=== PATIENT | male | born 1955 | race Caucasian/White ===

== ENCOUNTER 2019-12-26 21:47 | Emergency (ER) | payer SELFPAY ==
[2019-12-26 21:57] VITALS: BP 135/87; PULSE 104; RESP 18; TEMP 36.1; O2SAT 96; BMI 76.2
--- NOTE | 2019-12-26 22:31 | ED.ALCOHOL ---
HPI - Alcohol General Chief Complaint: ETOH/Substance Use <Fito Cotton NP - Last Filed: 12/27/19 01:38> Stated Complaint: ETOH <Fito Cotton NP - Last Filed: 12/27/19 01:38> Time Seen by Provider: 12/26/19 22:31 <Fito Cotton NP - Last Filed: 12/27/19 01:38> Source: EMS <Fito Cotton NP - Last Filed: 12/27/19 01:38> Mode of arrival: EMS <Fito Cotton NP - Last Filed: 12/27/19 01:38> Limitations: no limitations <Fito Cotton NP - Last Filed: 12/27/19 01:38> History of Present Illness HPI narrative: ETOH - states he was drinking etoh And unsure why his brother called ambulance. He has no complaints. He admits to drinking alcohol today and states he does still occasionally. Denies any injury or fall. <Fito Cotton NP - Last Filed: 12/27/19 01:38> MD complaint: alcohol intoxication <Fito Cotton NP - Last Filed: 12/27/19 01:38> Chronic alcohol use: Yes <Fito Cotton NP - Last Filed: 12/27/19 01:38> Previous visits for alcohol intoxication: Yes <Fito Cotton NP - Last Filed: 12/27/19 01:38> Recent trauma: No <Fito Cotton NP - Last Filed: 12/27/19 01:38> Associated symptoms: denies other symptoms <Fito Cotton NP - Last Filed: 12/27/19 01:38> Treatments prior to arrival: none <Fito Cotton NP - Last Filed: 12/27/19 01:38> Review of Systems Review of Systems: Constitutional: No Weight loss, No Fever, No Chills, No Night Sweats, No Fatigue, No Malaise ENT/Mouth: No Hearing loss, No Ear Pain, No Nasal Congestion, No Sinus Pain, No Hoarseness, No sore throat, No Rhinorrhea, No Swallowing Difficulty Eyes: No Eye Pain, No Swelling, No Redness, No Foreign Body, No Discharge, No Vision Changes Cardiovascular: No Chest Pain, No SOB, No Dyspnea on Exertion, No Orthopnea, No Edema, No Palpitations Respiratory: No Cough, No Sputum, No Wheezing, No Smoke Exposure, No Dyspnea Gastrointestinal: No Nausea, No Vomiting, No Diarrhea, No Constipation, No abdominal Pain, No Hematochezia, No Melena Genitourinary: no irregular bleeding, No Dysuria, No Urinary Frequency, No Hematuria, No Urinary Incontinence, No Urgency, No Flank Pain, No Urinary Flow Changes, No Hesitancy Musculoskeletal: No joint pain, No Myalgias, No Joint Swelling Skin: No Skin Lesions, No rash Neuro: No Weakness, No Numbness, No Paresthesias, No Loss of Consciousness, No Dizziness, No Headache Psych: No Anxiety/Panic, No Depression, No SI/HI/AH/VH, No Social Issues Heme/Lymph: No Bruising, No Bleeding,No Lymphadenopathy Endocrine: No Polyuria, No Polydipsia, No Temperature Intolerance <Fito Cotton NP - Last Filed: 12/27/19 01:38> Yes all other systems are reviewed and are negative <Fito Cotton NP - Last Filed: 12/27/19 01:38> [facility] Past Medical History Attestation statement: The following information was validated with the patient. <Fito Cotton NP - Last Filed: 12/27/19 01:38> Source: unable to obtain <Fito Cotton NP - Last Filed: 12/27/19 01:38> Medical History: Medical History ETOH abuse <Fito Cotton NP - Last Filed: 12/27/19 01:38> Social History Social History: Social History Alcohol intake: current Use of substances other than those prescribed or required for medical reasons: No Advance Directives: No Advance Directives Information Provided: Yes <Fito Cotton NP - Last Filed: 12/27/19 01:38> Physical Exam Vital Signs: Vital Signs: Vital Signs Temp Pulse Resp BP Pulse Ox 12/26/19 23:49 97.7 F 108 H 17 158/74 H 99 12/26/19 21:57 97.0 F 104 H 18 135/87 96 Body Mass Index 76.2 Reviewed <Fito Cotton NP - Last Filed: 12/27/19 01:38> Vital Signs: Vital Signs Temp Pulse Resp BP Pulse Ox 12/26/19 23:49 97.7 F 108 H 17 158/74 H 99 12/26/19 21:57 97.0 F 104 H 18 135/87 96 Body Mass Index 76.2 <Erica Rutledge MD - Last Filed: 12/27/19 02:15> Const: Other: slight odor of etoh <[facility] PAIGE Cotton - Last Filed: 12/27/19 01:38> General: cooperative and healthy appearing; No acute distress or intoxicated appearing <[facility] PAIGE Cotton - Last Filed: 12/27/19 01:38> Nutritional Appearance: average body habitus <[facility] PAIGE Cotton - Last Filed: 12/27/19 01:38> Orientation/consciousness: patient oriented x3 <[facility] PAIGE Cotton - Last Filed: 12/27/19 01:38> HENMT: Head: Yes normal to inspection <[facility] PAIGE Cotton - Last Filed: 12/27/19 01:38> Ears: hearing grossly normal bilaterally <[facility] PAIGE Cotton - Last Filed: 12/27/19 01:38> Eyes: General: appearance normal, both eyes and all related structures <[facility] PAIGE Cotton - Last Filed: 12/27/19 01:38> Visual Macdonald: normal visual macdonald by confrontation <[facility] PAIGE Cotton - Last Filed: 12/27/19 01:38> Neck: Neck: Yes normal visual inspection and No tender <[facility] PAIGE Cotton - Last Filed: 12/27/19 01:38> Thyroid: Thyroid normal <[facility] PAIGE Cotton - Last Filed: 12/27/19 01:38> Chest: Chest palpation & inspection: normal inspection of the chest <[facility] PAIGE Cotton - Last Filed: 12/27/19 01:38> Resp: Effort & Inspection: normal respiratory effort <[facility] PAIGE Cotton - Last Filed: 12/27/19 01:38> Cardio: Jugular venous distension: no JVD <[facility] PAIGE Cotton - Last Filed: 12/27/19 01:38> GI: Inspection: Yes normal to inspection <[facility] PAIGE Cotton - Last Filed: 12/27/19 01:38> Percussion: Yes normal to percussion <[facility] PAIGE Cotton - Last Filed: 12/27/19:38> Auscultation: normal bowel sounds <Fito Cotton NP - Last Filed: 12/27/19 01:38> : General: Yes no CVA tenderness <Fito Cotton NP - Last Filed: 12/27/19:38> Back/Spine/Pelvis: Back: no CVA tenderness <Fito Cotton NP - Last Filed: 12/27/19:38> Skin: General skin exam: no rashes or lesions noted <Fito Cotton NP - Last Filed: 12/27/19:38> Neuro: General: patient oriented x3 <Fito Cotton NP - Last Filed: 12/27/19:38> Extrem: General: Yes normal to inspection <Fito Cotton NP - Last Filed: 12/27/19:38> Course Course Course Narrative: 0135 attempted to call his brother to give him a ride home brother did not answer her phone at this time will allow patient to rest in the ED and he will try calling his brother in the morning for a ride back home. Will continue to encourage him for detox services. Patient will be signed out pending discharge in a.m.. <Fito Cotton NP - Last Filed: 12/27/19 01:38> MDM - Alcohol MDM Narrative Medical decision making narrative: Has been calm cooperative. Admits to ETOH intake this evening without any acute complaint/injury/fall. Will offer detox services and re-evaluate. <Fito Cotton NP - Last Filed: 12/27/19 01:38> Differential Diagnosis Differential diagnosis: Likely alcohol dependence and alcohol intoxication; Unlikely alcohol withdrawal delirium, hypomagnesemia, alcohol ketoacidosis, alcohol withdrawal syndrome and alcohol withdrawal seizure <Fito Cotton NP - Last Filed: 12/27/19 01:38> Medical Records Attestation: I reviewed the patient's medical records. <Fito Cotton NP - Last Filed: 12/27/19 01:38> Lab Data Attestation: I reviewed the patient's lab results. <Fito Cotton NP - Last Filed: 12/27/19 01:38> Discharge Plan Discharge Clinical Impression: Alcoholic intoxication Qualifiers: Complication of substance-induced condition: uncomplicated Qualified Code(s): F10.920 - Alcohol use, unspecified with intoxication, uncomplicated <Fito Cotton NP - Last Filed: 12/27/19 01:38> Patient Disposition: Home, Self-Care <Fito Cotton NP - Last Filed: 12/27/19 01:38> Instructions: Abuse of Alcohol (ED), Alcohol Use Disorder (ED) <Fito Cotton NP - Last Filed: 12/27/19 01:38> Additional Instructions: Please stop drinking alcohol Please seek detox Return if any concerns or worsening symptoms otherwise follow up with detox Also follow up with primary care doctor Thank you <Fito Cotton NP - Last Filed: 12/27/19 01:38> Referrals: Physician,None [Primary Care Provider] - 2 days ( primary care doctor Detox center ) <Fito Cotton NP - Last Filed: 12/27/19 01:38>
[2019-12-26 23:49] VITALS: BP 158/74; PULSE 108; RESP 17; TEMP 36.5; O2SAT 99
--- NOTE | 2019-12-27 00:09 | PC.NURSE ---
PT IS SLEEPING AT THIS TIME.
[2019-12-27 04:42] VITALS: BP 130/84; PULSE 96; RESP 16; O2SAT 96
== END 2019-12-27 05:36 | disposition home or self-care (01) ==
PROVIDERS: Emergency Provider Student in an Organized Health Care Education/Training Program
DX: F10.120 Alcohol abuse with intoxication, uncomplicated (principal); Y90.9 Presence of alcohol in blood, level not specified; Z71.41 Alcohol abuse counseling and surveillance of alcoholic
CPT/HCPCS: 99284

== ENCOUNTER 2023-04-26 13:53 | Inpatient (IN) | payer MEDICARE, MEDICAID, SELFPAY ==
--- NOTE | ~2023-04-26 | CT_ITS ---
EXAMINATION: CT ABDOMEN AND PELVIS WITH CONTRAST CLINICAL INFORMATION: 67-year-old male with left lower quadrant pain and weight loss COMPARISON: None available. TECHNIQUE: Multidetector volumetric images were obtained from the superior aspect of the liver through the pubic symphysis following administration 85 mL of Omnipaque 350 intravenous contrast. Sagittal and coronal reformatted images were obtained on the technologist's workstation. Oral contrast: No This CT examination was performed using dose optimization techniques as appropriate, variously including the following: *Automated exposure control *Adjustment of mA and/or kV according to patient size (this includes techniques or standardized protocols for targeted exams where dose is matched to indication/reason for exam; i.e. extremities or head) *Use of iterative reconstruction technique DLP: 619 mGy-cm FINDINGS: LUNG BASES: The visualized lung bases are unremarkable. LIVER, GALLBLADDER, AND BILIARY TREE: The liver is normal in size, shape, and attenuation. No focal hepatic lesion or biliary ductal dilatation is present. The gallbladder is unremarkable with no evidence of radiopaque gallstones, gallbladder wall thickening, or obvious pericholecystic inflammatory changes. PANCREAS: Unremarkable. SPLEEN: Unremarkable. ADRENAL GLANDS: Unremarkable. KIDNEYS AND URETERS: Right kidney revealed small cortical cyst in interpolar region measures 0.7 cm. Left kidney demonstrate nonobstructing 0.2 cm stone in the upper pole and nonobstructing 0.2 cm calculi in the lower pole. There is no hydroureteronephrosis or masses. BLADDER: Unremarkable. GASTROINTESTINAL TRACT: There is circumferential thickening and dilatation of small bowel loops with a maximum dimension 3.9 cm findings suggestive for small bowel obstruction. There is normal transition is in the right lower quadrant. There is large amount of fecal debris seen through the colon appendix is not seen. Descending colon is unremarkable. There are changes of diverticulosis but no diverticulitis. Large lobe of the descending colon and sigmoid is in the left inguinal hernia and incompletely included. There are bilateral inguinal hernias with loops of bowel herniated in the hernias with small bowel loops seen through the right inguinal hernia with possible incarceration and colonic loops seen through the large left inguinal hernia. LYMPH NODES: Normal. VASCULAR: Abdominal aorta is tortuous but not dilated. PELVIC VISCERA: Unremarkable. OSSEOUS STRUCTURES: There are multilevel degenerative changes in lumbar spine levoscoliosis. CT/CT abdomen pelvis w IV con IMPRESSION: 1. Small bowel obstruction secondary to incarceration of small bowel loop in the right inguinal hernia. 2. Large left inguinal hernia containing descending colon and sigmoid colon, without incarceration. 3. Diverticulosis without diverticulitis. 4. Left nephrolithiasis without hydronephrosis. Fleischner guidelines were followed. This critical result was discussed with Dr Day at 7:00 PM on 04/26/2023 and it was ascertained that the content and urgency of the report was understood at the time of direct communication.
[2023-04-26 14:27] VITALS: BP 108/70; BP 118/80; PULSE 84; PULSE 93; RESP 18; TEMP 36.4; O2SAT 98; O2SAT 99; BMI 26.8
--- NOTE | 2023-04-26 15:17 | ED.ABDPAIN ---
HPI - Abdominal Pain General Chief Complaint: Abdominal Pain Stated Complaint: LLQ PAIN PER EMS Time Seen by Provider: 04/26/23 14:46 Source: patient and old records reviewed Mode of arrival: EMS Limitations: no limitations History of Present Illness HPI narrative: 67 yo male with no sig PMH denies surgery or prior colonoscopy reports change in stools more soft and increasing LLQ pain with unknown amount of weight loss for 1 year. no blood in stools. Has not seen a doctor. Has tried OTC laxatives without relief. MD elicited complaint: abdominal pain Onset (ago): year(s) (1) Pain Consistency: intermittent Location: LLQ Severity: moderate Quality: aching Radiation: none Migration to: no migration Exacerbating factors: nothing and bowel movement Relieving factors: nothing Associated symptoms: other (change in stools weight loss) Related Data Allergies Allergy/AdvReac Type Severity Reaction Status Date / Time No Known Allergies Allergy Verified 04/26/23 14:26 Review of Systems Review of Systems Constitutional : pos Weight loss, No Fever, No Chills ENT/Mouth : No sore throat, No Rhinorrhea Eyes: No Swelling, No Redness Cardiovascular : No Chest Pain, No SOB, NoEdema Respiratory : No Cough, No Sputum, No Wheezing Gastrointestinal : no Nausea, no Vomiting, no Diarrhea, positive abdominal Pain, No Hematochezia, No Melena Genitourinary : No Dysuria, No Urinary Frequency, No Hematuria, No Urgency Musculoskeletal : No joint pain, No Myalgias, No Joint Swelling Skin : No Skin Lesions, No rash Neuro : No Weakness, No Numbness, No Dizziness, No Headache Psych : No Anxiety/Panic, No Depression All other systems reviewed and are negative. [facility] Past Medical History Attestation statement: The following information was validated with the patient. Source: old records reviewed Medical History ETOH abuse Social History Social History Unable to assess alcohol history related to: Unable to respond Alcohol intake: current Smoked in Last 30 Days: No Use of substances other than those prescribed or required for medical reasons: No Advance Directives: No Advance Directives Information Provided: Yes Physical Exam ED Vital Signs: Vital Signs - 24 hr 04/26/23 14:27 Temperature 97.6 F Pulse Rate 84 Respiratory Rate 18 Blood Pressure 108/70 Pulse Oximetry 99 Oxygen Delivery Method Room Air BMI result Body Mass Index 26.8 Appearance: Alert. Oriented X3. No acute distress. Eyes: Pupils equal, round and reactive to light. ENT: Pharynx normal. Neck: Normal inspection. Neck supple. CVS: Normal heart rate and rhythm. Pulses normal. Respiratory: No respiratory distress. Breath sounds normal. Abdomen: Soft and moderate LLQ pain no rebound Skin: Skin warm and dry. Normal skin color. Normal skin turgor. Extremities: No lower extremity edema. No calf ttp Neuro: Oriented X 3. No motor deficit. No sensory deficit. Course Course Course Narrative: signed out Dr. Day pending CT scans Medical Decision Making Medical Decision Making [facility] Narrative: 67 yo male no sig PMH no prior colonoscopy here with c/o LLQ pain and change in stools with weight loss but unknown amount for 1 year. He has not seen a doctor for this. At this time given the history will obtain labs, UA, and CT scan for mass. Differential Diagnosis Differential Diagnoses: The differential diagnosis associated with the presentation includes diverticulitis, constipation, hernia, mass Admission/Observation Consideration of admission/observation: Escalation of care including admission/observation considered Lab Data [facility] Lab Attestation statement: I reviewed the patient's lab results. 04/26/23 15:17 04/26/23 15:17 Labs: Lab Results 04/26/23 Range/Units 15:17 WBC 7.8 (4.8-10.8) X10*3/uL RBC 4.14 L (4.60-5.80) X10*6/uL Hgb 12.2 L (14.0-18.0) g/dl Hct 35.5 L (42.0-52.0) % MCV 85.7 (80.0-98.0) fL MCH 29.5 (27.0-33.0) pg MCHC 34.4 (31.0-36.0) g/dl RDW 12.9 (11.0-16.0) % Plt Count 221 (160-400) X10*3/uL MPV 8.6 L (9.4-12.4) fL Immature Gran % (Auto) 0.4 (0.0-0.4) % Neut % (Auto) 72.8 (45-73) % Lymph % (Auto) 12.3 L (20-40) % [place] % (Auto) 11.2 H (2-11) % Eos % (Auto) 2.3 (0-4) % Baso % (Auto) 1.0 (0-2) % Lymph # (Auto) 1.0 L (1.2-4.9) X10*3/uL [place] # (Auto) 0.9 (0.1-1.2) X10*3/uL Eos # (Auto) 0.2 (0.0-0.4) X10*3/uL Baso # (Auto) 0.1 (0.0-0.2) X10*3/uL Abs Immat Gran (auto) 0.03 (0.00-0.03) X10*3/uL Absolute Neuts (auto) 5.7 (2.0-8.3) x10*3/uL Absolute Nucleated RBC 0.000 (0.0-0.012) X10*3/uL Nucleated RBC % (auto) 0.0 (0.0-0.2) /100WBC Sodium 133 L (135-145) mmol/L Potassium 4.3 (3.3-5.1) mmol/L Chloride 101 (96-108) mmol/L Carbon Dioxide 26 (22-29) mmol/L Anion Gap 10 L (12-20) BUN 14 (9-16) mg/dL Creatinine 0.85 (0.5-1.4) mg/dL Estim Creat Clear Calc 91.2 Estimated GFR > 60 Random Glucose 113 (60-115) mg/dL Calcium 9.1 (8.4-10.2) mg/dL Magnesium 2.2 (1.6-2.6) mg/dL Total Bilirubin 1.3 H (0.0-1.0) mg/dL Direct Bilirubin 0.5 (0.0-0.5) mg/dL AST 12 (5-37) U/L ALT 6 (0-40) U/L Alkaline Phosphatase 61 (39-117) U/L Total Protein 6.0 L (6.5-8.0) g/dL Albumin 3.6 (3.5-5.0) g/dL Lipase 37 (8-78) U/L Independent Historian Clinical information obtained from an independent historian. History obtained from or confirmed by: EMS External Record Review External record reviewed: Outpatient record Discharge Plan Discharge Clinical Impression: Abdominal pain Qualifiers: Abdominal location: left lower quadrant Qualified Code(s): R10.32 - Left lower quadrant pain Patient Disposition: Still a Patient
[2023-04-26 15:21] LABS: MANUAL DIFF FLAG NO
[2023-04-26 15:24] LABS: Basophils Absolute Auto 0.1 X10*3/uL (0.0-0.2); Eosinophils Absolute Auto 0.2 X10*3/uL (0.0-0.4); Eosinophils Percent Auto 2.3 % (0-4); Hematocrit 35.5 % (42.0-52.0); Hemoglobin 12.2 g/dl (14.0-18.0); Imm Gran Abs Auto 0.03 X10*3/uL (0.00-0.03); Imm Gran Pct Auto 0.4 % (0.0-0.4); Lymphocytes Percent Auto 12.3 % (20-40); Mean Corpuscular HGB Conc 34.4 g/dl (31.0-36.0); Mean Corpuscular Hemoglobin 29.5 pg (27.0-33.0); Mean Corpuscular Volume 85.7 fL (80.0-98.0); Mean Platelet Volume 8.6 fL (9.4-12.4); Monocytes Absolute Auto 0.9 X10*3/uL (0.1-1.2); Monocytes Percent Auto 11.2 % (2-11); Neutrophils Absolute Auto 5.7 x10*3/uL (2.0-8.3); Neutrophils Percent Auto 72.8 % (45-73); Platelet Count 221 X10*3/uL (160-400); Red Blood Count 4.14 X10*6/uL (4.60-5.80); Red Cell Distribution Width 12.9 % (11.0-16.0); White Blood Count 7.8 X10*3/uL (4.8-10.8)
[2023-04-26 15:38] LABS: Alanine Aminotransferase 6 U/L (0-40); Albumin Level 3.6 g/dL (3.5-5.0); Alkaline Phosphatase 61 U/L (39-117); Anion Gap 10 (12-20); Aspartate Amino Transferase 12 U/L (5-37); Bilirubin Direct 0.5 mg/dL (0.0-0.5); Bilirubin Total 1.3 mg/dL (0.0-1.0); Blood Urea Nitrogen 14 mg/dL (9-16); Calcium 9.1 mg/dL (8.4-10.2); Carbon Dioxide 26 mmol/L (22-29); Chloride 101 mmol/L (96-108); Creatinine Clr Calc Pharmacy 91.2; Estimated Glomerular Filt Rate > 60; Glucose Random 113 mg/dL (60-115); Lipase 37 U/L (8-78); Magnesium 2.2 mg/dL (1.6-2.6); Potassium 4.3 mmol/L (3.3-5.1); Sodium 133 mmol/L (135-145)
[2023-04-26 16:00] VITALS: BP 135/73; PULSE 70; RESP 13; TEMP 37.2; O2SAT 100
[2023-04-26] MEDS: iohexoL 350 MG/ML 100 ML INFUS..BTL 85 ML IV (16:23)
--- NOTE | 2023-04-26 16:48 | PC.NURSE ---
patient a&ox3, vss, labs drawn, pt had ct scan performed, pt currently awaiting results and watching tv. per pt lbm today, call pratt within reach, will continue to monitor
[2023-04-26 18:00] VITALS: BP 116/79; PULSE 63; RESP 14; TEMP 37.2; O2SAT 100
[2023-04-26 20:00] VITALS: BP 131/80; PULSE 63; RESP 20; TEMP 36.9; O2SAT 100
--- NOTE | 2023-04-26 20:07 | P.HPHOSP_ITS ---
History of Present Illness Date of Service: 04/26/23 Chief Complaint: Abdominal pain This is a 67-year-old male with pertinent history of dementia, unspecified who presents to the emergency department for evaluation of abdominal discomfort. Patient states he has had right and left-sided abdominal discomfort, intermittent that has been ongoing for a year. It has been progressive over the last few weeks. Patient is not the best historian and states his last bowel movement was on the day of presentation. He denies nausea or vomiting. He denies similar complaints in the past. States he never had a colonoscopy in the past or any other surgery. Patient takes Metamucil for his abdominal discomfort but no relief. Denies fever, chills, chest discomfort, palpitations, shortness of breath, changes in urinary habits. Patient states his last alcoholic drink was around [place] In the emergency department, imaging with small-bowel obstruction secondary to incarceration of small bowel loop in the right inguinal hernia. Also noted large left inguinal hernia without incarceration. General surgery was consulted who requested admission with hospital medicine team. Review of Systems 2 Constitutional: Constitutional: Reports no additional constitutional complaints Cardiovascular: Cardiovascular: Reports no additional cardiovascular complaints Respiratory: Respiratory: Reports no additional respiratory complaints Gastrointestinal: Gastrointestinal: Reports abdominal pain Genitourinary: Genitourinary: Reports no additional male genitourinary complaints Neurologic: Reports system reviewed and no additional complaints, except as documented [facility] Medical History Dementia ETOH abuse Pertinent family history: No family history of early CAD Social History Unable to assess alcohol history related to: Unable to respond Alcohol intake: current Smoked in Last 30 Days: No Use of substances other than those prescribed or required for medical reasons: No Advance Directives: No Advance Directives Information Provided: Yes Meds Allergies Allergy/AdvReac Type Severity Reaction Status Date / Time No Known Allergies Allergy Verified 04/26/23 14:26 Home Medications Medication Instructions Recorded Confirmed Last Taken Type cholecalciferol (vitamin D3) 25 25 mcg PO DAILY 04/26/23 04/26/23 Unknown History mcg (1,000 unit) tablet donepezil 10 mg tablet 10 mg PO DAILY 04/26/23 04/26/23 Unknown History Physical Exam 2 Vital Signs and Narrative: Vital Signs: Last Vital Signs Temp 98.4 F 04/26/23 20:00 Pulse 63 04/26/23 20:00 Resp 20 04/26/23 20:00 BP 131/80 04/26/23 20:00 Pulse Ox 100 04/26/23 20:00 O2 Del Method Room Air 04/26/23 20:00 BMI result Body Mass Index 26.8 Middle-aged male lying in bed in no distress Neck supple, no JVD Regular rate and rhythm, S1-S2 heard Regular breath sounds bilaterally, no wheezing or crackles appreciated Abdomen soft with right and left lower quadrant tenderness, no guarding, no rigidity, no rebound tenderness Patient is awake, alert and oriented to self, place, time and person ; no focal motor deficit Psych: Normal mood No pedal edema Results Labs 04/26/23 15:17 04/26/23 15:17 Labs: Laboratory Results - last 24 hr 04/26/23 15:17 MCV 85.7 MCH 29.5 MCHC 34.4 RDW 12.9 Plt Count 221 MPV 8.6 L Immature Gran % (Auto) 0.4 Neut % (Auto) 72.8 Lymph % (Auto) 12.3 L [place] % (Auto) 11.2 H Eos % (Auto) 2.3 Baso % (Auto) 1.0 Lymph # (Auto) 1.0 L [place] # (Auto) 0.9 Eos # (Auto) 0.2 Baso # (Auto) 0.1 Abs Immat Gran (auto) 0.03 Absolute Neuts (auto) 5.7 Absolute Nucleated RBC 0.000 Nucleated RBC % (auto) 0.0 Anion Gap 10 L Estim Creat Clear Calc 91.2 Estimated GFR > 60 Random Glucose 113 Calcium 9.1 Magnesium 2.2 Total Bilirubin 1.3 H Direct Bilirubin 0.5 AST 12 ALT 6 Alkaline Phosphatase 61 Total Protein 6.0 L Albumin 3.6 Lipase 37 Imaging Radiologist's Impressions: Impressions Abdomen/Pelvis CT 04/26/23 16:22 IMPRESSION: 1. Small bowel obstruction secondary to incarceration of small bowel loop in the right inguinal hernia. 2. Large left inguinal hernia containing descending colon and sigmoid colon, without incarceration. 3. Diverticulosis without diverticulitis. 4. Left nephrolithiasis without hydronephrosis. Fleischner guidelines were followed. This critical result was discussed with Dr Day at 7:00 PM on 04/26/2023 and it was ascertained that the content and urgency of the report was understood at the time of direct communication. Assessment and Plan (1) Small bowel obstruction: Status: Acute Plan This is a 67-year-old male with pertinent history of dementia, unspecified who presents to the emergency department for evaluation of abdominal discomfort. #. Small-bowel obstruction secondary to incarceration of small bowel loop: Will admit patient and keep him NPO. General surgery was consulted from the ER, appreciate assistance. Resuscitating with IV crystalloids. Symptomatic management with antiemetics and analgesia #. Dementia, unspecified: On donepezil. Maintain sleep-wake cycle #. Alcohol use disorder: Monitor CIWA. Initiated thiamine DVT prophylaxis: SCDs Full code Admit as inpatient and will require two night minimum hospital stay for treatment of small-bowel obstruction (as above), which is not possible in a lesser acute setting. Specialist consult pending Quality Stroke Does the patient have a stroke diagnosis?: No VTE Prior VTE?: No VTE Risk Level:: Medical - moderate - high VTE Device Contraindication: N/A - Device Ordered VTE Drug Contraindication: Treatment Not Indicated
--- NOTE | 2023-04-26 20:31 | PHA.MEDREC ---
Pharmacy Consult ? Medication Reconciliation Pharmacy has completed the medication reconciliation. Confirmed medication with claim history. Patient unreliable, is unsure of what he is taking at home. Provider wanted Donepazil on list (has been filled consistently for months)
[2023-04-26] MEDS: Lactated Ringers 1,000 ML 999 ML IV (20:47)
[2023-04-26] MEDS: Thiamine HCL 100 MG in 0.9 % Sodium Chloride 100 ML 202 MG IV (20:55)
[2023-04-27 02:29] LABS: Appearance Urine Clear; Color Urine Yellow; Glucose Urine UA Negative (Negative); Leukocyte Esterase Urine Negative (Negative); Nitrite Urine Negative (Negative); PH 7.5 (5.0-9.0); Specific Gravity - Urine <= 1.005 (1.005-1.025); Urine Blood Negative (Negative); Urine Ketones Negative (Negative); Urine Protein Negative (Neg-Trace)
[2023-04-27 05:04] LABS: Basophils Absolute Auto 0.1 X10*3/uL (0.0-0.2); Basophils Percent Auto 1.6 % (0-2); Eosinophils Absolute Auto 0.4 X10*3/uL (0.0-0.4); Eosinophils Percent Auto 7.2 % (0-4); Hematocrit 35.8 % (42.0-52.0); Imm Gran Abs Auto 0.03 X10*3/uL (0.00-0.03); Imm Gran Pct Auto 0.5 % (0.0-0.4); Lymphocytes Absolute Auto 1.2 X10*3/uL (1.2-4.9); Lymphocytes Percent Auto 21.7 % (20-40); MANUAL DIFF FLAG NO; Mean Corpuscular HGB Conc 33.5 g/dl (31.0-36.0); Mean Corpuscular Hemoglobin 29.3 pg (27.0-33.0); Mean Corpuscular Volume 87.3 fL (80.0-98.0); Mean Platelet Volume 8.5 fL (9.4-12.4); Monocytes Absolute Auto 0.7 X10*3/uL (0.1-1.2); Monocytes Percent Auto 12.8 % (2-11); Neutrophils Absolute Auto 3.1 x10*3/uL (2.0-8.3); Neutrophils Percent Auto 56.2 % (45-73); Platelet Count 196 X10*3/uL (160-400); Red Cell Distribution Width 12.7 % (11.0-16.0); White Blood Count 5.5 X10*3/uL (4.8-10.8)
[2023-04-27 05:17] LABS: Anion Gap 8 (12-20); Blood Urea Nitrogen 11 mg/dL (9-16); Calcium 8.6 mg/dL (8.4-10.2); Carbon Dioxide 26 mmol/L (22-29); Chloride 107 mmol/L (96-108); Creatinine Clr Calc Pharmacy 109.2; Estimated Glomerular Filt Rate > 60; Glucose Random 87 mg/dL (60-115); Potassium 3.8 mmol/L (3.3-5.1); Sodium 137 mmol/L (135-145)
--- NOTE | 2023-04-27 06:38 | P.CONGS_ITS ---
History of Present Illness Consult details Consult date: 04/27/23 Narrative: Patient presents here from his [facility] with complaints of constipation. Workup demonstrated findings of bilateral inguinal hernias although the patient had no complaints of inguinal pain or abdominal distention. On evaluation this morning, patient has no abdominal pain. He is passing flatus. Chart was reviewed and patient evaluated ; history of dementia. [facility] Past Medical History Medical History Dementia ETOH abuse Social History Social History Unable to assess alcohol history related to: Unable to respond Alcohol intake: current Patient Tobacco Use Status: Never used Tobacco Smoked in Last 30 Days: No Use of substances other than those prescribed or required for medical reasons: No Advance Directives: No Advance Directives Information Provided: Yes Meds Allergies Allergy/AdvReac Type Severity Reaction Status Date / Time No Known Allergies Allergy Verified 04/26/23 14:26 Active Medications: Current Medications Acetaminophen (Acetaminophen 325 Mg Tablet) 650 mg PO Q6H PRN PRN Reason: Pain, Mild (Pain Scale 1-3) Donepezil HCl (Donepezil Hcl 10 Mg Tablet) 10 mg PO DAILY COUNT INCLUDES THE [facility] Thiamine HCl 100 mg/ Sodium (Chloride) 101 mls @ 202 mls/hr IV DAILY COUNT INCLUDES THE [facility] Melatonin (Melatonin 3 Mg Tablet) 6 mg PO BEDTIME PRN PRN Reason: Insomnia Morphine Sulfate (Morphine Sulfate 2 Mg/Ml Cartridge) 2 mg IVPUSH Q4H PRN; Protocol PRN Reason: Pain, Severe (Pain Scale 7-10) Ondansetron HCl (Ondansetron Hcl 4 Mg/2 Ml Vial) 4 mg IVPUSH Q8H PRN PRN Reason: Nausea and Vomiting Sodium Chloride (0.9 % Sodium Chloride Flush 3 Ml Syringe) 3 ml IVFLUSH QSHIFT COUNT INCLUDES THE [facility] Last Admin: 04/26/23 23:57 Dose: Not Given Vitamin D (Cholecalciferol (Vitamin D3) 25 Mcg Tablet) 25 mcg PO DAILY COUNT INCLUDES THE [facility] Home Medications Medication Instructions Recorded Confirmed Last Taken Type cholecalciferol (vitamin D3) 25 25 mcg PO DAILY 04/26/23 04/26/23 Unknown History mcg (1,000 unit) tablet donepezil 10 mg tablet 10 mg PO DAILY 04/26/23 04/26/23 Unknown History Physical Exam 2 Vital Signs: Vital Signs: Last Vital Signs Temp 98.4 F 04/26/23 20:00 Pulse 63 04/26/23 20:00 Resp 20 04/26/23 20:00 BP 131/80 04/26/23 20:00 Pulse Ox 100 04/26/23 20:00 O2 Del Method Room Air 04/26/23 20:00 BMI result Body Mass Index 26.8 Const: Other: Very pleasant cooperative patient. Chest: Other: Chest breath sounds bilaterally. GI: Other: Abdominal exam is noteworthy for no obvious right inguinal hernia. Patient has a large reducible left inguinal hernia. Both groin and exams are negative. No evidence of any pain, tenderness, skin changes. Abdomen is otherwise soft and benign. Results Labs 04/27/23 04:56 04/27/23 04:56 Labs: Abnormal lab results 04/26/23 04/27/23 Range/Units 15:17 04:56 RBC 4.14 L 4.10 L (4.60-5.80) X10*6/uL Hgb 12.2 L 12.0 L (14.0-18.0) g/dl Hct 35.5 L 35.8 L (42.0-52.0) % MPV 8.6 L 8.5 L (9.4-12.4) fL Immature Gran % (Auto) 0.5 H (0.0-0.4) % Lymph % (Auto) 12.3 L (20-40) % [place] % (Auto) 11.2 H 12.8 H (2-11) % Eos % (Auto) 7.2 H (0-4) % Lymph # (Auto) 1.0 L (1.2-4.9) X10*3/uL Sodium 133 L (135-145) mmol/L Anion Gap 10 L 8 L (12-20) Total Bilirubin 1.3 H (0.0-1.0) mg/dL Total Protein 6.0 L (6.5-8.0) g/dL Short CBC 04/26/23 04/27/23 Range/Units 15:17 04:56 WBC 7.8 5.5 (4.8-10.8) X10*3/uL Hgb 12.2 L 12.0 L (14.0-18.0) g/dl Hct 35.5 L 35.8 L (42.0-52.0) % Plt Count 221 196 (160-400) X10*3/uL BMP 04/26/23 04/27/23 15:17 04:56 Sodium 133 L 137 Potassium 4.3 3.8 Chloride 101 107 Carbon Dioxide 26 26 BUN 14 11 Creatinine 0.85 0.71 Calcium 9.1 8.6 Liver Function 04/26/23 Range/Units 15:17 Total Bilirubin 1.3 H (0.0-1.0) mg/dL Direct Bilirubin 0.5 (0.0-0.5) mg/dL AST 12 (5-37) U/L ALT 6 (0-40) U/L Alkaline Phosphatase 61 (39-117) U/L Albumin 3.6 (3.5-5.0) g/dL Urine 04/27/23 Range/Units 02:19 Urine Color Yellow Urine Appearance Clear Urine pH 7.5 (5.0-9.0) Ur Specific [place] <= 1.005 (1.005-1.025) Urine Protein Negative (Neg-Trace) mg/dL Urine Glucose (UA) Negative (Negative) mg/dL All other labs normal. Assessment and Plan (1) Bilateral inguinal hernia: Status: Acute Plan At present, no emergent or urgent surgical interventions were required. I discussed with the patient that he should follow-up with me as an outpatient for consideration of elective hernia repair especially on the left side which is quite large. Patient acknowledged this. All questions answered. Procedures Date of Service Date of Service: 04/27/23
[2023-04-27 06:45] VITALS: BP 138/77; PULSE 70; RESP 18; TEMP 36.8; O2SAT 98
--- NOTE | 2023-04-27 07:45 | PC.NURSE ---
Assumed care of this pt at 0700. Pt a+o, he denies pain. Pt was seen by Dr. Pina this morning and he recommends outpatient follow-up. No surgical intervention at this time. Pt aware of plan of care. GINNY Will. BRODY Calix aware, pt now on Clear Liquid diet. Meal ordered.
[2023-04-27] MEDS: Thiamine HCL 100 MG in 0.9 % Sodium Chloride 100 ML 202 MG IV (10:30)
[2023-04-27] MEDS: Donepezil HCl 10 MG TABLET PO (10:31)
[2023-04-27] MEDS: Cholecalciferol (Vitamin D3) 25 MCG TABLET PO (10:31)
[2023-04-27] MEDS: 0.9 % Sodium Chloride Flush 3 ML SYRINGE IVFLUSH (10:31)
--- NOTE | 2023-04-27 10:48 | P.DS_ITS ---
DS: Providers Provider Date of Service: 04/27/23 Date of admission: 04/26/23 20:06 Date of discharge: 04/27/23 Primary care physician: None Physician Consults: 04/26/23 20:35 Consult to General Surgery Routine Consulting Provider: [facility] General Surgeons Reason for consultation: Small-bowel obstruction Attending physician on discharge: Ruben Fragoso Discharging clinician: Fifi Rios DS: Diagnosis Discharge Diagnosis (1) Bilateral inguinal hernia: Status: Acute DS: Summary Hospital Course Hospital Course: From H&P on the day of admission This is a 67-year-old male with pertinent history of dementia, unspecified who presents to the emergency department for evaluation of abdominal discomfort. Patient states he has had right and left- sided abdominal discomfort, intermittent that has been ongoing for a year. It has been progressive over the last few weeks. Patient is not the best historian and states his last bowel movement was on the day of presentation. He denies nausea or vomiting. He denies similar complaints in the past. States he never had a colonoscopy in the past or any other surgery. Patient takes Metamucil for his abdominal discomfort but no relief. Denies fever, chills, chest discomfort, palpitations, shortness of breath, changes in urinary habits. Patient states his last alcoholic drink was around [place] In the emergency department, imaging with small-bowel obstruction secondary to incarceration of small bowel loop in the right inguinal hernia. Also noted large left inguinal hernia without incarceration. General surgery was consulted who requested admission with hospital medicine team. Abdominal pain. Imaging showing Small-bowel obstruction secondary to incarceration of small bowel loop. His abdominal pain resolved. He was seen in consultation by the general surgeon who did not feel that his symptoms were consistent with a small-bowel obstruction and there was no evidence of incarceration. Patient had a bowel movement this morning. He has no abdominal pain, his diet was advanced and he has tolerated diet. Surgery recommends outpatient follow-up in the office for elective repair of inguinal hernia. Time Attestation Discharge coordination time: Greater than 30 minutes Quality: Safe Use of Opioids Does Pt have an Active Cancer Diagnosis on the Problem List?: No Quality: Stroke Does the patient have a stroke diagnosis?: No Physical Exam Vital Signs: Vital Signs: Last Vital Signs Temp 98.3 F 04/27/23 06:45 Pulse 70 04/27/23 06:45 Resp 18 04/27/23 06:45 BP 138/77 04/27/23 06:45 Pulse Ox 98 04/27/23 06:45 O2 Del Method Room Air 04/27/23 06:45 BMI result Body Mass Index 26.8 Const: General: cooperative, comfortable, no acute distress, alert and awake Nutritional Appearance: average body habitus Orientation/consciousness: patient oriented x3 Resp: Effort & Inspection: normal respiratory effort, able to speak in complete sentences, no respiratory distress and no use of accessory muscles Auscultation: clear to auscultation bilaterally Cardio: Rate: regular rate GI: Other: +BS, no guarding, no rebound Inspection: No distended Palpation (GI): Soft to palpation and Tenderness to palpation present (GI) Neuro: General: patient oriented x3, moves all extremities and CN's II-XI intact bilaterally Extrem: General: Yes no pedal edema DS: Data Data Completed and Pending Labs on day of discharge: Laboratory Results - last 24 hr 04/26/23 04/27/23 04/27/23 15:17 02:19 04:56 WBC 7.8 5.5 RBC 4.14 L 4.10 L Hgb 12.2 L 12.0 L Hct 35.5 L 35.8 L MCV 85.7 87.3 MCH 29.5 29.3 MCHC 34.4 33.5 RDW 12.9 12.7 Plt Count 221 196 MPV 8.6 L 8.5 L Immature Gran % (Auto) 0.4 0.5 H Neut % (Auto) 72.8 56.2 Lymph % (Auto) 12.3 L 21.7 [place] % (Auto) 11.2 H 12.8 H Eos % (Auto) 2.3 7.2 H Baso % (Auto) 1.0 1.6 Lymph # (Auto) 1.0 L 1.2 [place] # (Auto) 0.9 0.7 Eos # (Auto) 0.2 0.4 Baso # (Auto) 0.1 0.1 Abs Immat Gran (auto) 0.03 0.03 Absolute Neuts (auto) 5.7 3.1 Absolute Nucleated RBC 0.000 0.000 Nucleated RBC % (auto) 0.0 0.0 Sodium 133 L 137 Potassium 4.3 3.8 Chloride 101 107 Carbon Dioxide 26 26 Anion Gap 10 L 8 L BUN 14 11 Creatinine 0.85 0.71 Estim Creat Clear Calc 91.2 109.2 Estimated GFR > 60 > 60 Random Glucose 113 87 Calcium 9.1 8.6 Magnesium 2.2 Total Bilirubin 1.3 H Direct Bilirubin 0.5 AST 12 ALT 6 Alkaline Phosphatase 61 Total Protein 6.0 L Albumin 3.6 Lipase 37 Urine Color Yellow Urine Appearance Clear Urine pH 7.5 Ur Specific [place] <= 1.005 Urine Protein Negative Urine Glucose (UA) Negative Urine Ketones Negative Urine Blood Negative Urine Nitrite Negative Ur Leukocyte Esterase Negative Discharge Plan Discharge Anticipated Discharge Date/Time: 04/27/23 13:14 Patient Disposition: Home, Self-Care Discharge Diagnosis: inguinal hernia abdominal pain Referrals: Physician,Melissa [Primary Care Provider] - 1 Week Piero Pina MD [Physician] - 1 Week Discharge Medications: Continued donepezil 10 mg tablet 10 mg PO DAILY cholecalciferol (vitamin D3) 25 mcg (1,000 unit) tablet 25 mcg PO DAILY Discharge Orders: Discharge Order (Routine); Ordered 04/27/23 Ordered By: Fifi Rios Activity on Discharge: As tolerated Stand Alone Forms: Patient Portal Discharge page Care Plan Goals: see below Health Concerns: abdominal pain inguinal hernia Plan of Treatment: recommend outpatient follow up with general surgery for elective repair of inguinal hernia Assessment: see discharge summary
[2023-04-27 11:01] VITALS: BP 110/70; PULSE 62; RESP 17; TEMP 36.9; O2SAT 97
--- NOTE | 2023-04-27 11:02 | PC.NURSE ---
PO meds and liquids given and tolerated well. Pt denies pain, vss.
--- NOTE | 2023-04-27 16:16 | MHC.CM.PN ---
PT REPORTS HE LIVES AT [facility] AND IS INDEPENDENT WITH CARE HE USES NO SERVICES AND NO DME HE DOES NOT HAVE A HCP OR PCP HE SAYS HE SEES PROVIDERS VIA THE [facility] HE DECLINES TO COMPLETE A HCP TODAY PT IS AWARE HE IS GOING TO BE DISCHARGED IMM DELIVERED CM CALLED [facility] AND LEFT VM MESSAGES FOR BOTH NURSING AND ADMINISTRATION THEY HAVE NOT RETURNED CALLS DCS FAXED TO [facility] AT [phone] PT DISCHARGED BACK TO [facility]
== END 2023-04-27 20:29 | disposition home or self-care (01) | DRG 395 ==
LOC: HO.ED 15:53 → HO.EDOVER 20:46
PROVIDERS: Emergency Medicine; Admitting Provider Student in an Organized Health Care Education/Training Program; Emergency Provider Emergency Medicine Emergency Medical Services; Visit Provider Physician Assistant Medical
DX: K40.00 Bilateral inguinal hernia, with obstruction, without gangrene, not specified as recurrent (principal); F03.90 Unspecified dementia, unspecified severity, without behavioral disturbance, psychotic disturbance, mood disturbance, and anxiety; F10.10 Alcohol abuse, uncomplicated; Z79.899 Other long term (current) drug therapy
CPT/HCPCS: 36415; 74177; 80048; 80076; 81003; 83690; 83735; 85025; 99221; 99285; J3411; J7120; Q9967

== ENCOUNTER → 2023-04-26 14:47 | Outpatient (BNV) | payer MEDICARE, MEDICAID, SELFPAY | PROVIDERS: Emergency Provider Emergency Medicine Emergency Medical Services; Visit Provider Student in an Organized Health Care Education/Training Program | DX: K40.20 Bilateral inguinal hernia, without obstruction or gangrene, not specified as recurrent (principal) | CPT/HCPCS: 99222; 99238 ==

== ENCOUNTER → 2023-04-26 20:06 | Outpatient (BNV) | payer MEDICARE, MEDICAID, SELFPAY | PROVIDERS: Admitting Provider Student in an Organized Health Care Education/Training Program; Emergency Provider Emergency Medicine Emergency Medical Services; Visit Provider Surgery | DX: K40.20 Bilateral inguinal hernia, without obstruction or gangrene, not specified as recurrent (principal) | CPT/HCPCS: 99222 ==

== ENCOUNTER 2023-07-31 11:08 | Outpatient (AMB) | payer MEDICARE, MEDICAID, SELFPAY ==
--- NOTE | 2023-07-31 11:27 | A.OFFVIS_ITS ---
Vital Signs 07/31/23 11:30 Weight 172 lb BP 119/69 Blood Pressure Location Rt brachial Position Sitting Pulse 87 Intake Visit Reasons: hernia Intake Note: Patient scheduled today's appointment to discuss hernia. Patient c/o: bulging out at times. Takes Metamucil. ABD/ Pelvis CT: 04-26-23. Belt Worker Required: No Accompanied by: Marva from [facility] Allergies No Known Allergies Allergy (Verified 07/31/23 11:28) HPI Comments Details: Patient presents for evaluation of inguinal herniae. Left is more symptomatic. He has had these many years time. She has otherwise tolerating a diet. Having regular bowel habits. Patient has no other GI issues or complaints. He has never had colonoscopy before. Chart was reviewed and patient evaluated. Patient said he has lost a significant amount of weight on purpose because he was moderately obese. [facility], [facility] Medical History Dementia ETOH abuse Social History Unable to assess alcohol history related to: Unable to respond Alcohol intake: current Patient Tobacco Use Status: Never used Tobacco service: No Physical Exam Vital Signs: Last Vital Signs Pulse 87 07/31/23 11:30 BP 119/69 07/31/23 11:30 Chest Other: Chest breath sounds bilaterally, HS 1 in 2 GI Other: Patient was examined both supine and standing with Valsalva. Very large reducible right inguinal hernia. Left side demonstrates a complete/scrotal left inguinal hernia irreducible of massive size. Genitalia was able to be palpated with bilateral testicles within normal limits. Abdomen soft, benign, moderately sized pannus Assessment & Plan Assessment & Plan (1) Bilateral inguinal hernia: Code(s): K40.20 - Bilateral inguinal hernia, without obstruction or gangrene, not specified as recurrent Category: Surgical Plan Risks, benefits, alternatives of open bilateral inguinal hernia repair reviewed with the patient and included but not limited to bleeding, infection, recurrence, numbness, pain, scarring and the patient wished to proceed. All questions answered. Arrangements made for this. Review of findings and plan were provided for the patient's ECF. Coding Level of Care Code New Pt Level 5 (37369) Diagnoses Bilateral inguinal hernia K40.20
[2023-07-31 11:30] VITALS: BP 119/69; PULSE 87
== END 2023-07-31 11:39 | disposition home or self-care (01) ==
PROVIDERS: Visit Provider Surgery
DX: K40.20 Bilateral inguinal hernia, without obstruction or gangrene, not specified as recurrent (principal)
CPT/HCPCS: 99214

== ENCOUNTER → 2023-07-31 11:08 | Outpatient (BNVA) | payer MEDICARE, MEDICAID, SELFPAY | PROVIDERS: Visit Provider Surgery | DX: K40.20 Bilateral inguinal hernia, without obstruction or gangrene, not specified as recurrent (principal) | CPT/HCPCS: 99212 ==

== ENCOUNTER 2023-09-06 06:59 | Day surgery (SDC) | payer MEDICARE, MEDICAID, SELFPAY ==
--- NOTE | 2023-09-05 19:50 | MHC.SHP ---
Pre-Procedural Eval Section A - 24 Hr Update-Section A only Date of Service: 09/06/23 The patient is an INPATIENT: No Changes since office visit: No Cold of Flu in the past 2 weeks, No New Medical Problems, No Changes in Medication and No Patient answered all questions Section B - Complete if H&P > 30 days Chief Complaint: Bilateral inguinal hernia, without obstruction Allergies: Allergies Allergy/AdvReac Type Severity Reaction Status Date / Time No Known Allergies Allergy Verified 07/31/23 11:28 Plan I have reviewed the history and physical and performed a pertinent physical examination on my patient. No changes have occurred unless specified. Time Spent With Patient Time: Total time managing care of this patient today ____ minutes.
[2023-09-06 07:59] VITALS: BMI 21.7
[2023-09-06 08:03] VITALS: BP 100/66; PULSE 74; RESP 16; TEMP 36.3; O2SAT 100
[2023-09-06] MEDS: Lactated Ringers 1,000 ML 50 ML IVCONT (09:00)
--- NOTE | 2023-09-06 10:53 | P.CONAN_ITS ---
HPI - Anesthesia Eval Consult details Narrative: 68 yo male patient with bilateral inguinal herniae. For repair of bilateral inguinal herniae with mesh [facility] Active Problems Active Problems: All Active Problems (Updated 05/05/23 @ 00:02 by Ami Del Castillo) Bilateral inguinal hernia (Acute) Dementia (Acute) H/o ETOH abuse. Patient states last ETOH use was at [facility] Sebaceous cyst Left anterior neck Past Medical History Medical History Dementia ETOH abuse Family History Family history of problems with anesthesia: No Surgical History Surgical History No pertinent past surgical history History of Problems with Anesthesia: No Social History Social History Unable to assess alcohol history related to: Unable to respond Alcohol intake: current Alcohol intake frequency: former alcohol drinker Patient Tobacco Use Status: Never used Tobacco Use of substances other than those prescribed or required for medical reasons: No Are you DNR?: No Advance Directives: No Advance Directives Information Provided: Yes service: No Meds Allergies Allergy/AdvReac Type Severity Reaction Status Date / Time No Known Allergies Allergy Verified 09/06/23 07:55 Active Medications: Current Medications Lactated Ringer's (Lr) 1,000 mls @ 50 mls/hr IVCONT .Q20H SARA Last Admin: 09/06/23 09:00 Dose: 50 mls/hr Home Medications ?Medication ?Instructions ?Recorded ?Confirmed ?Last Taken ?Type cholecalciferol (vitamin D3) 25 25 mcg PO DAILY 04/26/23 09/06/23 Unknown History mcg (1,000 unit) tablet psyllium husk 0.4 gram capsule 0.4 g PO BID 09/06/23 09/06/23 Unknown History (Metamucil) Exam Height,Weight and Vital Signs: Height 6 ft Weight 72.575 kg Last Vital Signs Temp 97.4 F 09/06/23 08:03 Pulse 74 09/06/23 08:03 Resp 16 09/06/23 08:03 BP 100/66 09/06/23 08:03 Pulse Ox 100 09/06/23 08:03 O2 Del Method Room Air 09/06/23 08:03 Airway Mallampati Class: II TM Dist: >3cm Neck ROM: Full Loose/Missing/Broken Teeth: Yes (Only [address] Denies broken or loose) Heart: RRR Lungs: CTAB Assessment and Plan Assessment Anesthesia Assessment: Anesthesia Plan Discussed and Chart Reviewed Final Anesthetic Review Family History of Problems with Anesthesia: No History of Problems with Anesthesia: No NPO: Yes ASA Class: III Final Preanesthetic Review: No Changes in Pt Med Stat, Meds/Allgs Chart Reviewed, Consent Obtained/Reviewed and Anes Risks/Benef Reviewed Patient Risk: Intermediate Procedure Risk: Low Assessment/Block/Sedation in SS: Assess/Block/Sedation-SS Anesthetic Plan Anesthetic Plan: GA Disposition: Standard PACU
--- NOTE | 2023-09-06 11:01 | MHC.SHP ---
Pre-Procedural Eval Section A - 24 Hr Update-Section A only Date of Service: 09/06/23 The patient is an INPATIENT: No Changes since office visit: No Cold of Flu in the past 2 weeks, No New Medical Problems, No Changes in Medication and No Patient answered all questions The patient has been examined within 24 hours of the surgical procedure. The History & Physical has been completed within 30 days and I have reviewed it.: Yes Section B - Complete if H&P > 30 days Chief Complaint: Bilateral inguinal hernia, without obstruction Allergies: Allergies Allergy/AdvReac Type Severity Reaction Status Date / Time No Known Allergies Allergy Verified 09/06/23 07:55 Review of Systems Sugical H&P ROS: Negative: Constitution, Cardiovascular, Respiratory, Neurological, Psychiatric, Hem-Onc, Allergic/Immunologic, Gastrointestinal, Genitourinary, Musculoskeletal, Integumentary, Endocrine and Eyes/Ears/Nose/Throat Exam Surgical H&P Exam: Normal: HEENT, Normal: Heart, Normal: Lungs, Normal: Extremities, Normal: Abdomen, Normal: Skin and Normal: Neurological Plan I have reviewed the history and physical and performed a pertinent physical examination on my patient. No changes have occurred unless specified. Time Spent With Patient Time: Total time managing care of this patient today ____ minutes.
[2023-09-06 12:49] VITALS: BP 126/70; PULSE 53; RESP 20; TEMP 36.3; O2SAT 100
[2023-09-06 12:50] VITALS: BP 126/74; PULSE 55; RESP 20; O2SAT 98
[2023-09-06 12:55] VITALS: BP 126/72; PULSE 52; RESP 18; O2SAT 98
[2023-09-06 13:00] VITALS: BP 129/73; PULSE 56; RESP 16; O2SAT 98
[2023-09-06 13:14] VITALS: BP 125/75; PULSE 60; RESP 18; TEMP 36.2; O2SAT 98
--- NOTE | 2023-09-06 13:25 | W.PM.OPN ---
Operative Note Operative Note Date of Service: 09/06/23 Narrative: Preoperative diagnosis: [] Massive Bilateral complete/scrotal inguinal herniae Postop diagnosis: [] The same Procedure [] open bilateral inguinal herniorrhaphy with Bard mesh Surgeon: [] Yovani Branch Store Manager: [] Shabbir Type of Anesthesia: [] General Indication for surgery: [] Enormous bilateral indirect inguinal herniae extending in to the scrotum. Findings: [] Patient brought to the operating room, placed on operative table in supine position, after an adequate level of general anesthesia was induced, bilateral groin areas were prepped and draped in usual sterile fashion. Commencing with the left side, a small left para inguinal incision was made and carried down through skin, subcutaneous tissue, Deya's fascia. Patient had very attenuated skin and soft tissue. External oblique fibers were opened their direction with care to isolate preserve the ilioinguinal nerve throughout the procedure. Spermatic cord was identified and retracted from the field along with an enormous scrotal/complete left inguinal hernia. This was eventually reduced and brought onto the field. There was marked cicatrization and scarring of the sac to the spermatic cord. Was eventually and reduced. A extra-large Bard plug was placed in the indirect defect, and sutured inferiorly to the inguinal ligament, and superiorly transverse fascia using interrupted 0 Ethibond suture. At completion of procedure, mesh was in good position with no tension or gaps and also covered the inguinal floor. Wound was irrigated, secured hemostasis, and closed in the following manner; external oblique fascia was closed using running 2-0 Vicryl suture. Deya's fascia was reapproximated using interrupted 3-0 Vicryl suture. Interrupted inverted deep dermal 3-0 Vicryl sutures followed by running subcuticular 4-0 Vicryl sutures were placed. Next the right groin was approached in a mirror image para inguinal incision and carried down through skin, subcutaneous tissue, Deya's fascia. External oblique fibers were opened their direction with care to isolate and preserve the ilioinguinal nerve throughout the procedure. Spermatic cord was identified and retracted from the field. Scrotal/complete right inguinal hernia was identified and eventually reduced from the scrotum and from the spermatic cord. This was reduced. An extra-large Bard plug was placed in the indirect defect and sutured inferiorly to the inguinal ligament, and superiorly to the transversalis fascia using interrupted 0 Ethibond suture. At completion of procedure, mesh was in good position with no tension or gaps and also covered the inguinal floor. Wound was irrigated, secured hemostasis, and closed in the following manner; external oblique fascia was reapproximated using running 2-0 Vicryl suture. Interrupted 3-0 Vicryl sutures reapproximated Deya's fascia. Interrupted inverted deep dermal 3-0 Vicryl sutures followed by running subcuticular 4-0 Vicryl sutures were placed. Steri-Strips and sterile dressings were applied. At the beginning of the case, each side underwent ilioinguinal nerve block followed by postprocedure infiltration with 0.5% Marcaine. Sponge, needle, and instrument counts reported correct. Patient tolerated the procedure well and emerged from anesthesia stable condition. EBL minimal Bilateral testicles were intrascrotal at completion.
== END 2023-09-06 13:46 | disposition home or self-care (01) ==
PROVIDERS: PCP Internal Medicine; Visit Provider Surgery
PROC: (CPT 49505; principal; 2023-09-06 10:50)
PROC: (CPT 49505; 2023-09-06 10:50)
DX: K40.20 Bilateral inguinal hernia, without obstruction or gangrene, not specified as recurrent (principal); F03.90 Unspecified dementia, unspecified severity, without behavioral disturbance, psychotic disturbance, mood disturbance, and anxiety; F10.10 Alcohol abuse, uncomplicated; Z79.899 Other long term (current) drug therapy
CPT/HCPCS: 49505; C1781; J0131; J0690; J1100; J2250; J2405; J2704; J2795; J3010

== ENCOUNTER → 2023-09-06 06:59 | Outpatient (BNV) | payer MEDICARE, MEDICAID, SELFPAY | PROVIDERS: PCP Internal Medicine; Visit Provider Surgery | DX: K40.20 Bilateral inguinal hernia, without obstruction or gangrene, not specified as recurrent (principal) | CPT/HCPCS: 49505 ==

== ENCOUNTER 2023-09-17 10:38 | Outpatient (AMB) | payer MEDICARE, MEDICAID, SELFPAY ==
--- NOTE | 2023-09-17 10:41 | MHC.OFFVIS ---
Intake Visit Reasons: S/P bilateral inguinal hernia Intake Note: Patient here s/p bilateral/ scrotal inguinal hernia. Reports incisions healing well. Patient c/o: no concerns. SX: 09-06-2023. 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 He has minimal incisional discomfort. He is increasing his activity level. He is tolerating a diet. He is having regular bowel habits. [facility] Medical History Dementia ETOH abuse Surgical History Hx of bilateral inguinal hernia repair (09/06/23) No pertinent past surgical history Social History Unable to assess alcohol history related to: Unable to respond Alcohol intake: current Alcohol intake frequency: former alcohol drinker Patient Tobacco Use Status: Never used Tobacco service: No Physical Exam GI Other: Abdomen is soft. Bilateral wounds clean dry and intact healing uneventfully. Ecchymosis on the left groin and some scrotal edema which was expected secondary to the massive left inguinal hernia which was in his scrotum. Assessment & Plan Assessment & Plan (1) Status post bilateral inguinal hernia repair, follow-up exam: Code(s): Z09 - Encounter for follow-up examination after completed treatment for conditions other than malignant neoplasm; Z87.19 - Personal history of other diseases of the digestive system Category: Medical Plan Patient and his facility on documentation form has been given local instructions and will see me as directed or p.r.n.. All questions answered Coding Level of Care Code Global (56976) Diagnoses Status post bilateral inguinal hernia repair, follow-up exam Z09; Z87.19
== END 2023-09-17 10:52 | disposition home or self-care (01) ==
PROVIDERS: PCP Internal Medicine; Visit Provider Surgery
DX: Z09 Encounter for follow-up examination after completed treatment for conditions other than malignant neoplasm (principal); Z87.19 Personal history of other diseases of the digestive system
CPT/HCPCS: 99024

== ENCOUNTER → 2023-09-17 10:38 | Outpatient (BNVA) | payer MEDICARE, MEDICAID, SELFPAY | PROVIDERS: Visit Provider Surgery | DX: Z09 Encounter for follow-up examination after completed treatment for conditions other than malignant neoplasm (principal); Z87.19 Personal history of other diseases of the digestive system | CPT/HCPCS: 99212 ==

== ENCOUNTER 2023-10-30 10:44 | Outpatient (AMB) | payer MEDICARE, MEDICAID, SELFPAY ==
--- NOTE | 2023-10-30 11:01 | MHC.OFFVIS ---
Intake Visit Reasons: S/P bilateral inguinal hernia Intake Note: Patient here s/p bilateral inguinal hernia. Reports incisions healing well. Patient c/o: no concerns. SX: 09-06-2023. 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 He is tolerating a diet. Having regular bowel habits. He has incisional discomfort is minimal. He has no other wound issues or complaints. As facility was concerned because of firmness in the groin area. [facility] Medical History Dementia ETOH abuse Surgical History Hx of bilateral inguinal hernia repair (09/06/23) No pertinent past surgical history Social History Unable to assess alcohol history related to: Unable to respond Alcohol intake: current Alcohol intake frequency: former alcohol drinker Patient Tobacco Use Status: Never used Tobacco service: No Physical Exam GI Other: Abdomen is soft. Moderately sized pannus. Bilateral hernia wounds healing very well. Underlying firmness/cicatrization consistent with mesh healing. No evidence of any hernia recurrence. Genitalia grossly within normal limits. Mild scrotal/spermatic cord swelling of the left foot no other acute pathology. Assessment & Plan Assessment & Plan (1) Status post bilateral inguinal hernia repair, follow-up exam: Code(s): Z09 - Encounter for follow-up examination after completed treatment for conditions other than malignant neoplasm; Z87.19 - Personal history of other diseases of the digestive system Category: Medical Plan Patient is facility have been given local instructions, patient otherwise follow-up p.r.n.. All questions answered. Coding Level of Care Code Global (29799) Diagnoses Status post bilateral inguinal hernia repair, follow-up exam Z09; Z87.19
== END 2023-10-30 11:18 | disposition home or self-care (01) ==
PROVIDERS: PCP Internal Medicine; Visit Provider Surgery
DX: Z09 Encounter for follow-up examination after completed treatment for conditions other than malignant neoplasm (principal); Z87.19 Personal history of other diseases of the digestive system
CPT/HCPCS: 99024

== ENCOUNTER → 2023-10-30 10:44 | Outpatient (BNVA) | payer MEDICARE, MEDICAID, SELFPAY | PROVIDERS: PCP Internal Medicine; Visit Provider Surgery | DX: Z09 Encounter for follow-up examination after completed treatment for conditions other than malignant neoplasm (principal); Z87.19 Personal history of other diseases of the digestive system | CPT/HCPCS: 99212 ==

== ENCOUNTER 2024-02-25 14:29 | Emergency (ER) | payer MEDICARE, MEDICAID, SELFPAY ==
--- NOTE | ~2024-02-25 | XR_ITS ---
CLINICAL HISTORY: fall Three views of the lumbar spine. Findings: There is thoracolumbar scoliosis. No definite acute fracture is seen. There are advanced multilevel degenerative changes. Impression: No definite acute fracture is identified. This document has been electronically signed by: Lon Iverson MD on 02/25/2024 17:13:56
--- NOTE | ~2024-02-25 | CT_ITS ---
CLINICAL HISTORY: fall, head trauma CT of the head without contrast. No comparison. Findings: Is mild atrophy with white matter changes. No acute hemorrhage or infarct is seen. No masses are identified and there is no hydrocephalus. There is no mass-effect. There is jihv-og-[id number] sinus disease. Impression: No acute intracranial abnormality is identified. This document has been electronically signed by: Lon Iverson MD on 02/25/2024 17:41:37
--- NOTE | ~2024-02-25 | CT_ITS ---
CLINICAL HISTORY: fall, neck trauma CT of the cervical spine without contrast. No comparison. Findings: There is mucosal thickening of the maxillary sinuses. No acute fractures are seen. There are prominent degenerative changes. No significant malalignment is noted. There is multilevel spinal and foraminal stenosis. Inferior to the left mandible there is a 1.6 cm subdermal cyst. Impression: No acute fractures. This document has been electronically signed by: Lon Iverson MD on 02/25/2024 17:40:15
--- NOTE | ~2024-02-25 | XR_ITS ---
CLINICAL HISTORY: fall Two views of the left femur. Findings: No acute fractures are seen. Alignment is normal. There are degenerative changes in the hip and knee. Impression: No acute fractures. This document has been electronically signed by: Lon Iverson MD on 02/25/2024 17:14:32
--- NOTE | ~2024-02-25 | XR_ITS ---
CLINICAL HISTORY: pain and fall Pelvis and left hip. Findings: No acute fractures are identified. There is bilateral hip DJD. Alignment is normal. Impression: No acute fractures. This document has been electronically signed by: Lon Iverson MD on 02/25/2024 17:15:27
[2024-02-25 14:59] VITALS: BP 101/61; BP 114/68; PULSE 67; PULSE 76; RESP 17; TEMP 36.8; O2SAT 97; O2SAT 99; BMI 23.0
[2024-02-25 15:09] VITALS: BP 113/63; PULSE 75; RESP 14; TEMP 36.6; O2SAT 98
--- NOTE | 2024-02-25 15:37 | ED.FALL ---
HPI - Fall General Chief Complaint: Fall Stated Complaint: LOW BACK PAIN FROM SNF PER EMS Time Seen by Provider: 02/25/24 14:58 Source: patient, EMS and old records reviewed Mode of arrival: EMS Limitations: other (poor historian) History of Present Illness ED Provider: BRI ANDERSEN Narrative: 68 yo male with PMH of dementia hx of hernia repair not on thinners states he slipped at SNF and injured L hip, low back. He denies head strike. He told me he slipped at home and wasn't on ground long but he is at SNF. It was unwitnessed fall. No vomiting, denies abdominal pain, chest pain/SOB. At baseline. He told me he walked from the apartment to the stretcher. 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) Fall from: standing Fall witnessed: no Place fall occurred: skilled nursing/SNF Loss of consciousness: none Prolonged down time: no Symptoms prior to fall: none Context: tripped/slipped Location of injury: pelvis, buttocks and other (low back) Severity: mild Quality: aching Associated symptoms (after fall): denies Related Data Home Medications ?Medication ?Instructions ?Recorded ?Confirmed cholecalciferol (vitamin D3) 25 25 mcg PO DAILY 04/26/23 10/30/23 mcg (1,000 unit) tablet psyllium husk 0.4 gram capsule 0.4 g PO BID 09/06/23 10/30/23 (Metamucil) acetaminophen 325 mg capsule 650 mg PO Q6H PRN 09/17/23 10/30/23 donepezil 10 mg tablet 10 mg PO DAILY 09/17/23 10/30/23 magnesium hydroxide 400 mg/5 mL 5 ml PO DAILY PRN 09/17/23 10/30/23 oral suspension (Milk of Magnesia) Allergies Allergy/AdvReac Type Severity Reaction Status Date / Time No Known Allergies Allergy Verified 02/25/24 15:05 Review of Systems Review of Systems: Constitutional : No Fever, No Chills ENT/Mouth : No Ear Pain, No Hoarseness, No sore throat Eyes: No Eye Pain, No Swelling, No Redness, No Foreign Body Cardiovascular : No Chest Pain, No SOB Respiratory : No Cough, No Dyspnea Gastrointestinal : No Nausea, No Vomiting, No Diarrhea, No abdominal Pain Genitourinary : No Dysuria, No Hematuria Musculoskeletal : positive joint pain, No Myalgias, No Joint Swelling Skin : No Skin lacerations, No rash Neuro : No Weakness, No Numbness, No Loss of Consciousness, No Dizziness, No Headache All other systems reviewed and are negative [facility] Past Medical History Attestation statement: The following information was validated with the patient. Source: old records reviewed Medical History Dementia ETOH abuse Surgical History Hx of bilateral inguinal hernia repair (09/06/23) No pertinent past surgical history Social History Social History Unable to assess alcohol history related to: Unable to respond Alcohol intake: current Alcohol intake frequency: former alcohol drinker Patient Tobacco Use Status: Never used Tobacco Advance Directives: No Advance Directives Information Provided: Yes service: No Physical Exam Vital Signs: Vital Signs: Last Vital Signs Temp 97.9 F 02/25/24 15:09 Pulse 75 02/25/24 15:09 Resp 14 02/25/24 15:09 BP 113/63 02/25/24 15:09 Pulse Ox 98 02/25/24 15:09 O2 Del Method Room Air 02/25/24 15:09 BMI result Body Mass Index 23.0 Appearance: Alert. Oriented x2. No acute distress. Eyes: Pupils equal, round and reactive to light. ENT: Pharynx normal. Neck: Normal inspection. Neck supple. CVS: Normal heart rate and rhythm. Pulses normal. Respiratory: No respiratory distress. Breath sounds normal. Abdomen: Soft and non-tender. Skin: Skin warm and dry. Normal skin color. Normal skin turgor. Extremities: No lower extremity edema. reports ttp along L femur, hip but has ROM but reports pain with axial loading, distal NV intact Neuro: Oriented X 2. No motor deficit. No sensory deficit. Course Course Course Narrative: signed out to Dr. Wade pending work up Medical Decision Making Medical Decision Making MDM Narrative: 68 yo male with PMH of dementia hx of hernia repair not on thinners here with c/o fall unwitnessed at facility at this time given dementia and unwitnessed fall will obtain xrays, CT head/cspine, basic labs and EKG. He is NV intact overall not toxic and appears at baseline. Differential Diagnosis Differential Diagnoses: The differential diagnosis associated with the presentation includes hip injury, fall, head injury Admission/Observation Consideration of admission/observation: Escalation of care including admission/observation considered Lab Data MDM Lab Attestation statement: I reviewed the patient's lab results. 02/25/24 15:52 02/25/24 15:52 Labs: Lab Results 02/25/24 Range/Units 15:52 WBC 7.1 (4.8-10.8) X10*3/uL RBC 4.19 L (4.60-5.80) X10*6/uL Hgb 12.7 L (14.0-18.0) g/dl Hct 37.2 L (42.0-52.0) % MCV 88.8 (80.0-98.0) fL MCH 30.3 (27.0-33.0) pg MCHC 34.1 (31.0-36.0) g/dl RDW 13.2 (11.0-16.0) % Plt Count 174 (160-400) X10*3/uL MPV 8.9 L (9.4-12.4) fL Immature Gran % (Auto) 0.4 (0.0-0.4) % Neut % (Auto) 68.7 (45-73) % Lymph % (Auto) 14.1 L (20-40) % [place] % (Auto) 12.7 H (2-11) % Eos % (Auto) 2.7 (0-4) % Baso % (Auto) 1.4 (0-2) % Lymph # (Auto) 1.0 L (1.2-4.9) X10*3/uL [place] # (Auto) 0.9 (0.1-1.2) X10*3/uL Eos # (Auto) 0.2 (0.0-0.4) X10*3/uL Baso # (Auto) 0.1 (0.0-0.2) X10*3/uL Abs Immat Gran (auto) 0.03 (0.00-0.03) X10*3/uL Absolute Neuts (auto) 4.9 (2.0-8.3) x10*3/uL Absolute Nucleated RBC 0.000 (0.0-0.012) X10*3/uL Nucleated RBC % (auto) 0.0 (0.0-0.2) /100WBC Sodium 138 (135-145) mmol/L Potassium 4.4 (3.3-5.1) mmol/L Chloride 107 (96-108) mmol/L Carbon Dioxide 26 (22-29) mmol/L Anion Gap 9 L (12-20) BUN 24 H (9-16) mg/dL Creatinine 0.81 (0.5-1.4) mg/dL Estim Creat Clear Calc 93.7 Estimated GFR > 60 Random Glucose 108 (60-115) mg/dL Calcium 9.4 D (8.4-10.2) mg/dL Magnesium 2.4 (1.6-2.6) mg/dL Total Bilirubin 1.5 H (0.0-1.0) mg/dL Direct Bilirubin 0.4 (0.0-0.5) mg/dL AST 18 (5-37) U/L ALT 11 (0-40) U/L Troponin I High Sens < 2.7 (<3.5-35.0) ng/L Total Protein 6.0 L (6.5-8.0) g/dL Albumin 3.6 (3.5-5.0) g/dL Independent Interpretation I performed an independent interpretation of an: EKG, Plain X-Ray and CT Scan Interpretation: Rate: 76 Rhythm: NSR with PVCs Climax: left Normal P waves. Normal ROCIO. RBBB ST T wave : no PAMELA, inverted t waves V1 qTC: 461 prior studies: no acute ischemia The study has been interpreted contemporaneously by me. . Radiology Impression Discussion of test interpretation with radiology: I have reviewed the radiologist's reading. Independent Historian Clinical information obtained from an independent historian. History obtained from or confirmed by: EMS External Record Review External record reviewed: Inpatient record and Outpatient record Discharge Plan Discharge Clinical Impression: Acute hip pain Patient Disposition: Still a Patient Prescriptions: No Action cholecalciferol (vitamin D3) 25 mcg (1,000 unit) tablet 25 mcg PO DAILY psyllium husk [Metamucil] 0.4 gram Capsule 0.4 g PO BID donepezil 10 mg tablet 10 mg PO DAILY acetaminophen 325 mg capsule 650 mg PO Q6H PRN magnesium hydroxide [Milk of Magnesia] 400 mg/5 mL suspension 5 ml PO DAILY PRN Print Language: Maori
--- NOTE | 2024-02-25 15:40 | ECG_ITS ---
Test Reason : FALL Blood Pressure : / mmHG Vent. Rate : 076 BPM Atrial Rate : 061 BPM P-R Int : 198 ms QRS Dur : 128 ms QT Int : 410 ms P-R-T Axes : 059 000 039 degrees QTc Int : 461 ms Sinus rhythm with occasional Premature ventricular complexes Right bundle branch block Abnormal ECG No previous ECGs available Referred By: Yesy Jung Electronically Signed By:ALLY BENTLEY MD
[2024-02-25 15:59] LABS: Basophils Absolute Auto 0.1 X10*3/uL (0.0-0.2); Basophils Percent Auto 1.4 % (0-2); Eosinophils Absolute Auto 0.2 X10*3/uL (0.0-0.4); Eosinophils Percent Auto 2.7 % (0-4); Hematocrit 37.2 % (42.0-52.0); Hemoglobin 12.7 g/dl (14.0-18.0); Imm Gran Abs Auto 0.03 X10*3/uL (0.00-0.03); Imm Gran Pct Auto 0.4 % (0.0-0.4); Lymphocytes Percent Auto 14.1 % (20-40); MANUAL DIFF FLAG NO; Mean Corpuscular HGB Conc 34.1 g/dl (31.0-36.0); Mean Corpuscular Hemoglobin 30.3 pg (27.0-33.0); Mean Corpuscular Volume 88.8 fL (80.0-98.0); Mean Platelet Volume 8.9 fL (9.4-12.4); Monocytes Absolute Auto 0.9 X10*3/uL (0.1-1.2); Monocytes Percent Auto 12.7 % (2-11); Neutrophils Absolute Auto 4.9 x10*3/uL (2.0-8.3); Neutrophils Percent Auto 68.7 % (45-73); Platelet Count 174 X10*3/uL (160-400); Red Blood Count 4.19 X10*6/uL (4.60-5.80); Red Cell Distribution Width 13.2 % (11.0-16.0); White Blood Count 7.1 X10*3/uL (4.8-10.8)
[2024-02-25 16:21] LABS: Troponin-I High Sensitivity < 2.7 ng/L (<3.5-35.0)
[2024-02-25 16:24] LABS: Alanine Aminotransferase 11 U/L (0-40); Albumin Level 3.6 g/dL (3.5-5.0); Anion Gap 9 (12-20); Aspartate Amino Transferase 18 U/L (5-37); Bilirubin Direct 0.4 mg/dL (0.0-0.5); Bilirubin Total 1.5 mg/dL (0.0-1.0); Blood Urea Nitrogen 24 mg/dL (9-16); Calcium 9.4 mg/dL (8.4-10.2); Carbon Dioxide 26 mmol/L (22-29); Chloride 107 mmol/L (96-108); Creatinine Clr Calc Pharmacy 93.7; Estimated Glomerular Filt Rate > 60; Glucose Random 108 mg/dL (60-115); Magnesium 2.4 mg/dL (1.6-2.6); Potassium 4.4 mmol/L (3.3-5.1); Sodium 138 mmol/L (135-145)
[2024-02-25 16:46] LABS: Alkaline Phosphatase 57 U/L (39-117)
[2024-02-25 18:09] VITALS: BP 124/73; PULSE 70; RESP 14; TEMP 36.8; O2SAT 99
[2024-02-25 20:15] VITALS: BP 116/75; PULSE 71; RESP 16; TEMP 36.8; O2SAT 100
[2024-02-25 20:23] LABS: Appearance Urine Cloudy; Color Urine Yellow; Glucose Urine UA Negative (Negative); Leukocyte Esterase Urine Negative (Negative); Nitrite Urine Negative (Negative); UMIC TRIGGER UACC YES; Urine Blood Trace (Negative); Urine Ketones Negative (Negative); Urine Protein Negative (Neg-Trace)
[2024-02-25 20:27] LABS: Bacteria Urine None Seen (None Seen); Hyaline Casts Urine 0-2 /LPF (0-2); Squamous Epithelial Cell Urine 0-2 /HPF (0-2); WBC Urine 0-5 /HPF (0-5)
--- NOTE | 2024-02-25 22:01 | PC.NURSE ---
Nurse to nurse report provided to Leonila from [facility]
[2024-02-26 01:23] VITALS: BP 116/75; PULSE 71; RESP 16; TEMP 36.8; O2SAT 100
== END 2024-02-26 00:45 | disposition skilled nursing facility (03) ==
PROVIDERS: Emergency Medicine; Emergency Provider Emergency Medicine
DX: M25.552 Pain in left hip (principal); S09.90XA Unspecified injury of head, initial encounter; W19.XXXA Unspecified fall, initial encounter; Y93.9 Activity, unspecified; Y92.9 Unspecified place or not applicable; Y99.9 Unspecified external cause status; M54.50 Low back pain, unspecified; F03.90 Unspecified dementia, unspecified severity, without behavioral disturbance, psychotic disturbance, mood disturbance, and anxiety; Z79.899 Other long term (current) drug therapy
CPT/HCPCS: 36415; 70450; 72100; 72125; 73502; 73552; 80048; 80076; 81001; 83735; 84484; 85025; 93005; 99284

== ENCOUNTER → 2024-02-25 15:11 | Outpatient (BNV) | payer MEDICARE, MEDICAID, SELFPAY | PROVIDERS: Emergency Provider Emergency Medicine; Visit Provider Radiology Diagnostic Radiology | DX: S19.9XXA Unspecified injury of neck, initial encounter (principal); S09.90XA Unspecified injury of head, initial encounter; M25.552 Pain in left hip; Z03.89 Encounter for observation for other suspected diseases and conditions ruled out | CPT/HCPCS: 70450; 72100; 72125; 73502; 73552 ==

== ENCOUNTER → 2024-02-25 15:40 | Outpatient (BNV) | payer MEDICARE, MEDICAID, SELFPAY | PROVIDERS: Emergency Provider Emergency Medicine; Visit Provider Internal Medicine Cardiovascular Disease | DX: R94.31 Abnormal electrocardiogram [ECG] [EKG] (principal) | CPT/HCPCS: 93010 ==

== ENCOUNTER 2024-03-19 13:39 | Emergency (ER) | payer MEDICARE, MEDICAID, SELFPAY ==
--- NOTE | ~2024-03-19 | XR_ITS ---
EXAMINATION: XR HIP, LEFT CLINICAL INFORMATION: left hip pain COMPARISON: 02/25/2024. TECHNIQUE: AP pelvis and 2 views of the left hip. FINDINGS: No definite fracture, dislocation, or suspicious bone lesion. There is normal alignment. Mild to moderate degenerative arthritis both hip joints. Normal femoral head contours without evidence of AVN. Pelvis appears intact without definitive fracture. Sacrum appears intact. Degenerative changes bilateral SI joints and lower lumbar spine. No acute soft tissue abnormalities. XR/XR hip LT w PEL 1V IMPRESSION: 1. No fracture or dislocation. 2. Mild to moderate degenerative arthritis right lateral hip joints. Electronically signed by: Raji Munoz MD 03/19/2024 02:15 PM DONELL
[2024-03-19 13:46] VITALS: BP 123/66; PULSE 66; RESP 20; TEMP 36.9; O2SAT 100; BMI 27.0
--- NOTE | 2024-03-19 14:21 | ED.LOWEXIN ---
HPI - Extremity Injury (Lower) General Chief Complaint: Extremity Injury, Lower Stated Complaint: LT HIP PAIN Time Seen by Provider: 03/19/24 14:19 Source: patient Mode of arrival: EMS Limitations: no limitations History of Present Illness ED Provider: Dr. Long Day HPI Narrative: 68-year-old male with a history of dementia and hernia who fell a proximally 6 months prior injuring his left hip. Since that fall the patient has been taking Tylenol 650 mg 3 times a day with improvement in his pain. According to notes sent in from the [facility], the patient's Tylenol is no longer working for his pain. Patient denied any recent fall or re-injury to his hip. Patient was seen in the emergency department on 02/25/2024 for slip and fall and injury to his left hip. That time x-rays were unremarkable. Related Data Home Medications ?Medication ?Instructions ?Recorded ?Confirmed cholecalciferol (vitamin D3) 25 25 mcg PO DAILY 04/26/23 10/30/23 mcg (1,000 unit) tablet psyllium husk 0.4 gram capsule 0.4 g PO BID 09/06/23 10/30/23 (Metamucil) acetaminophen 325 mg capsule 650 mg PO Q6H PRN 09/17/23 10/30/23 donepezil 10 mg tablet 10 mg PO DAILY 09/17/23 10/30/23 magnesium hydroxide 400 mg/5 mL 5 ml PO DAILY PRN 09/17/23 10/30/23 oral suspension (Milk of Magnesia) Previous Rx's ?Medication ?Instructions ?Recorded ibuprofen 400 mg tablet 400 mg PO TID PRN fever or pain 03/19/24 #30 tabs Allergies Allergy/AdvReac Type Severity Reaction Status Date / Time No Known Allergies Allergy Verified 03/19/24 13:48 Review of Systems Review of Systems: Yes all other systems are reviewed and are negative [facility] Past Medical History [facility] Narrative: Social history: The patient lives at [facility]. He denies tobacco and alcohol use. Medical History Dementia ETOH abuse Surgical History Hx of bilateral inguinal hernia repair (09/06/23) No pertinent past surgical history Social History Social History Unable to assess alcohol history related to: Unable to respond Alcohol intake: current Alcohol intake frequency: former alcohol drinker Patient Tobacco Use Status: Never used Tobacco Advance Directives: No Advance Directives Information Provided: Yes service: No Physical Exam Vital Signs: Vital Signs: Last Vital Signs Temp 98.4 F 03/19/24 13:46 Pulse 66 03/19/24 13:46 Resp 20 03/19/24 13:46 BP 123/66 03/19/24 13:46 Pulse Ox 100 03/19/24 13:46 O2 Del Method Room Air 03/19/24 13:46 BMI result Body Mass Index 27.0 Vital signs were normal Exam: General: Awake, alert in no distress Extremities: no deformities, patient has no tenderness palpation over his left hip joint, left lateral hip. He was no increased pain with pressure on his pelvic bones. Patient has full passive and active range of motion of his left hip and knee without any limitations. Neuro: Awake, alert, oriented, normal speech, cranial nerves intact, moves all extremities symmetrically Psych: Pleasant, cooperative Medical Decision Making Medical Decision Making MDM Narrative: 68-year-old male with a history of dementia and hernia who fell a proximally 6 months prior and 02/25/2024 with injuring his left hip. X-ray from 02/25/2024 revealed no acute fractures. According to his rest home notes, the patient has been taking Tylenol 650 mg 3 times a day for pain and this medication is no longer effective. Vital signs were normal. Evaluation of the patient was left hip revealed no significant findings, he was full range of motion passively and actively no tenderness palpation of the hip joint, lateral hip or with pressure applied to the pelvic bones. Differential diagnosis: ?Includes but is not limited to left hip fracture, degenerative joint disease, inflammatory arthritis Course: 14:45 My independent interpretation patient's laboratory evaluation is as follows: WBC was normal 7300. Normocytic anemia with an H&H of 12.3 and 35.8-this is chronic platelet count was normal. Sodium was low 133. BUN and creatinine were normal at 18 and 0.75 with a GFR of greater than 60. Total bilirubin was elevated 1.5. LFTs were normal. X-ray of the left hip revealed [id number] degenerative joint disease with no acute fracture other abnormality noted. Patient's pain is most likely secondary to his degenerative joint disease. I advised him to continue taking Tylenol 650 mg 3 times a day as needed for pain. He was given prescription for ibuprofen 400 mg, 3 times a day as needed for pain. Patient will be discharged back to his rest home and advised to follow up with his PCP for further management of his hip pain. Admission/Observation Consideration of admission/observation: Escalation of care including admission/observation considered (Yes) Lab Data MDM Lab Attestation statement: I reviewed the patient's lab results. 03/19/24 14:19 03/19/24 14:19 Labs: Lab Results 03/19/24 Range/Units 14:19 WBC 7.3 (4.8-10.8) X10*3/uL RBC 4.06 L (4.60-5.80) X10*6/uL Hgb 12.3 L (14.0-18.0) g/dl Hct 35.8 L (42.0-52.0) % MCV 88.2 (80.0-98.0) fL MCH 30.3 (27.0-33.0) pg MCHC 34.4 (31.0-36.0) g/dl RDW 12.9 (11.0-16.0) % Plt Count 171 (160-400) X10*3/uL MPV 8.6 L (9.4-12.4) fL Immature Gran % (Auto) 0.5 H (0.0-0.4) % Neut % (Auto) 70.4 (45-73) % Lymph % (Auto) 13.9 L (20-40) % [place] % (Auto) 12.0 H (2-11) % Eos % (Auto) 2.0 (0-4) % Baso % (Auto) 1.2 (0-2) % Lymph # (Auto) 1.0 L (1.2-4.9) X10*3/uL [place] # (Auto) 0.9 (0.1-1.2) X10*3/uL Eos # (Auto) 0.2 (0.0-0.4) X10*3/uL Baso # (Auto) 0.1 (0.0-0.2) X10*3/uL Abs Immat Gran (auto) 0.04 H (0.00-0.03) X10*3/uL Absolute Neuts (auto) 5.2 (2.0-8.3) x10*3/uL Absolute Nucleated RBC 0.000 (0.0-0.012) X10*3/uL Nucleated RBC % (auto) 0.0 (0.0-0.2) /100WBC Independent Interpretation I performed an independent interpretation of an: Plain X-Ray Interpretation: My interpretation of the patient's left hip x-ray is as follows: No acute fracture, degenerative joint disease Radiology Impression Discussion of test interpretation with radiology: I have reviewed the radiologist's reading. Radiologist Impression: EXAMINATION: XR HIP, LEFT COMPARISON: 02/25/2024. Findings: No definite fracture, dislocation, or suspicious bone lesion. There is normal alignment. Mild to moderate degenerative arthritis both hip joints. Normal femoral head contours without evidence of AVN. Pelvis appears intact without definitive fracture. Sacrum appears intact. Degenerative changes bilateral SI joints and lower lumbar spine. No acute soft tissue abnormalities. IMPRESSION: 1. No fracture or dislocation. 2. Mild to moderate degenerative arthritis right lateral hip joints. Electronically signed by: Raji Munoz MD 03/19/2024 02:15 PM EST External Record Review External record reviewed: Other (Rest home notes ) Prescription Management I considered prescription management with: Pain Medication Chronic Conditions Patient?s care impacted by: Other (Dementia) Discharge Plan Discharge Clinical Impression: Degenerative joint disease of left hip Patient Disposition: Home, Self-Care Instructions: Osteoarthritis (ED) Additional Instructions: You had a CBC, CMP and left hip x-ray done today in the emergency department Your blood work was unremarkable. The x-ray of your left hip did not reveal any broken bones but you do have moderate amount of degenerative/osteoarthritis of the hip which explains your chronic pain. Continue taking Tylenol 650 mg 3 times a day as needed for pain. Take ibuprofen 400 mg pills, 1 pills every 6 hours as needed for pain or fever. Continue taking your other medications as prescribed by your providers Follow-up with your doctor in 2 days. Please return to the emergency department if your symptoms get worse or if you develop any symptoms that are concerning to you. Prescriptions: New ibuprofen 400 mg tablet 400 mg PO TID PRN (Reason: fever or pain) Qty: 30 0RF No Action cholecalciferol (vitamin D3) 25 mcg (1,000 unit) tablet 25 mcg PO DAILY psyllium husk [Metamucil] 0.4 gram Capsule 0.4 g PO BID donepezil 10 mg tablet 10 mg PO DAILY acetaminophen 325 mg capsule 650 mg PO Q6H PRN magnesium hydroxide [Milk of Magnesia] 400 mg/5 mL suspension 5 ml PO DAILY PRN Print Language: Beninese
[2024-03-19 14:26] LABS: MANUAL DIFF FLAG NO
[2024-03-19 14:29] LABS: Basophils Absolute Auto 0.1 X10*3/uL (0.0-0.2); Basophils Percent Auto 1.2 % (0-2); Eosinophils Absolute Auto 0.2 X10*3/uL (0.0-0.4); Hematocrit 35.8 % (42.0-52.0); Hemoglobin 12.3 g/dl (14.0-18.0); Imm Gran Abs Auto 0.04 X10*3/uL (0.00-0.03); Imm Gran Pct Auto 0.5 % (0.0-0.4); Lymphocytes Percent Auto 13.9 % (20-40); Mean Corpuscular HGB Conc 34.4 g/dl (31.0-36.0); Mean Corpuscular Hemoglobin 30.3 pg (27.0-33.0); Mean Corpuscular Volume 88.2 fL (80.0-98.0); Mean Platelet Volume 8.6 fL (9.4-12.4); Monocytes Absolute Auto 0.9 X10*3/uL (0.1-1.2); Neutrophils Absolute Auto 5.2 x10*3/uL (2.0-8.3); Neutrophils Percent Auto 70.4 % (45-73); Platelet Count 171 X10*3/uL (160-400); Red Blood Count 4.06 X10*6/uL (4.60-5.80); Red Cell Distribution Width 12.9 % (11.0-16.0); White Blood Count 7.3 X10*3/uL (4.8-10.8)
[2024-03-19 14:43] LABS: Alanine Aminotransferase 9 U/L (0-40); Albumin Level 3.6 g/dL (3.5-5.0); Alkaline Phosphatase 56 U/L (39-117); Anion Gap 8 (12-20); Aspartate Amino Transferase 18 U/L (5-37); Bilirubin Total 1.5 mg/dL (0.0-1.0); Blood Urea Nitrogen 18 mg/dL (9-16); Carbon Dioxide 27 mmol/L (22-29); Chloride 102 mmol/L (96-108); Creatinine Clr Calc Pharmacy 95.1; Estimated Glomerular Filt Rate > 60; Glucose Random 101 mg/dL (60-115); Potassium 3.9 mmol/L (3.3-5.1); Sodium 133 mmol/L (135-145); Total Protein 6.1 g/dL (6.5-8.0)
[2024-03-19 15:00] VITALS: BP 113/74; PULSE 83; RESP 16; TEMP 36.8; O2SAT 100
--- OUTSIDE RECORDS SUMMARY | 2024-03-19 16:19 | XMS_ITS | Encounter Summary ---
Author Organization [facility] Address [address] [place] [address] Care Team Providers Care Furniture Sprayer Name Role Phone Vernon Scales MD Primary Care Provider [phone]- [phone] Reason for Referral * Consultation (Routine) - Pending Review Specialty Diagnoses / Procedures Referred By Timothy petersen Referred To Contact General Surgery Diagnoses Non-recurrent bilateral inguinal hernia without obstruction or gangrene Brionna Pabon PA [address] [place] [address] Referral ID Status Reason Start Date Expiration Date Visits Requested Visits Authorized [id number] Pending Review Specialty Services Required 03/10/2024 03/10/2025 1 1 * Consultation (Routine) - Authorized Specialty Diagnoses / Procedures Referred By Timothy petersen Referred To Contact Otolaryngology Diagnoses Tinnitus of both ears Brionna Pabon PA [address] [place] [phone] [facility] [address] [place] [phone] Referral ID Status Reason Start Date Expiration Date Visits Requested Visits Authorized [id number] Authorized Specialty Services Required 03/10/2024 03/10/2025 1 1 Reason for Visit * Reason Comments Follow-up Encounter Details Date Type Department Care Team ([facility] Contact Info) Description 03/10/2024 10:30 AM EST Office Visit [facility] [address] [place] [phone] Brionna Pabon PA [address] [place] [address] Late onset Alzheimer's dementia without behavioral disturbance, psychotic disturbance, mood disturbance, or anxiety, unspecified dementia severity (CMS/HCC) (Primary Dx); Tinnitus of both ears; Non-recurrent bilateral inguinal hernia without obstruction or gangrene; Weight loss Social History Tobacco Use Types Packs/Day Years Used Date Smoking Tobacco: Never Smokeless Tobacco: Never Tobacco Cessation:Counseling Given: Not Answered Alcohol Use Standard Drinks/Week Comments Not Currently 0 (1 standard drink = 0.6 oz pur e alcohol) Sex and Gender Information Value Date Recorded Sex Assigned at Not on file Gender Identity Not on file Sexual Orientation Not on file Job Start Date Occupation Industry Not on file Not on file Not on file documented as of this encounter Last Filed Vital Signs Vital Sign Reading Time Taken Comments Blood Pressure 138/86 03/10/2024 10:33 AM EST Pulse 66 03/10/2024 10:14 AM EST Temperature 36.6 ??C (97.8 ??F) 03/10/2024 10:[address] Respiratory Rate 14 03/10/2024 10:14 AM EST Oxygen Saturation - - Inhaled Oxygen Concentration - - Weight 84.4 kg (186 lb) 03/10/2024 10:14 AM EST Height 180.3 cm (5' 11 ) 03/10/2024 10:14 AM EST Body Mass Index 25.94 03/10/2024 10:14 AM EST documented in this encounter Progress Notes * BRODY Orr - 03/10/2024 10:30 AM EST CHIEF COMPLAINT: Follow-up IDENTIFIER: Lupillo Arechiga is a 68 y.o. old male. HPI: 67-year-old male patient with a past medical history of dementia, constipation, osteoarthritis, left-sided 2 mm kidney stone, bilateral inguinal hernia and tinnitus presents today for medication review. Patient noted to have weight loss 4 months ago. He was started on ensure shakes daily, now his his weight has increased. He was previously 168 lbs and now 186 lbs. His appetite has been good. He complains of tinnitus and he states need new referral to ENT which I placed today. He has history of bilateral inguinal hernia and he reports persistent discomfort. No signs of strangulation or incarceration on exam today. I will place new referral for him to follow up with [facility] general surgery team. He follows up with neurologist Dr. Garcia. Health maintenance is reviewed. Last colonoscopy 2022-tubular adenoma and recommended repeat colonoscopy in 5 years. Last PSA level was within normal limits. ROS: GENERAL: No malaise, significant weight loss or fever HEENT: No changes in hearing or vision, nose bleeds or other nasal problems NECK: No lumps, goiter, pain or significant neck swelling RESPIRATORY: No cough, wheezing or shortness of breath CARDIOVASCULAR: No chest pain, leg swelling or palpitations GI: No abdominal pain, hematochezia, melena : No dysuria, oliguria, polyuria, hematuria, flank pain MUSCULOSKELETAL: No joint pain or swelling, back pain, or muscle pain. SKIN: No lesions, rash or itching NEURO: No persistent headache, syncope, seizures, weakness or numbness PAST MEDICAL HISTORY: Patient Active Problem List Diagnosis Date Noted Constipation 11/09/2023 Late onset Alzheimer's dementia without behavioral disturbance, psychotic disturbance, mood disturbance, or anxiety (CMS/HCC) 05/08/2023 Non-recurrent bilateral inguinal hernia without obstruction or gangrene 05/08/2023 Tinnitus of both ears 05/08/2023 Hepatomegaly 03/28/2022 History of ETOH abuse 03/28/2022 Past Surgical History: Procedure Laterality Date OTHER SURGICAL HISTORY PROCEDURE: DENIES PREVIOUS SURGERY SOCIAL HISTORY: Social History Tobacco Use Smoking status: Never Smokeless tobacco: Never Substance Use Topics Alcohol use: Not Currently FAMILY HISTORY: Family History Problem Relation Name Age of Onset Other cancer Neg Hx Diabetes Neg Hx Coronary artery disease Neg Hx Family Status Relation Name Status Neg Hx (Not Specified) Mother Father Sister Alive Brother Alive MGM MGF PGM PGF No partnership data on file MEDICATIONS DISCONTINUED/REORDERED: There are no discontinued medications. ACTIVE MEDICATIONS: No outpatient medications have been marked as taking for the 03/10/24 encounter (Office Visit) with BRODY Orr. ALLERGIES: Not on File PHYSICAL EXAM: Vitals: 03/10/24 1033 BP: 138/86 Pulse: Resp: Temp: APPEARANCE: Alert and in no acute distress EYES: PERRLA, conjunctiva and sclera normal. EARS: External ears normal. Canals clear. TMs normal. NOSE/SINUS: Nares normal. Septum midline. Mucosa normal. No drainage or sinus tenderness. MOUTH/THROAT: no erythema or exudates NECK: Neck supple, no adenopathy, thyroid symmetric and of normal size HEART: RRR with normal S1 and S2, no murmurs, no gallops CHEST: non-tender to palpation, no crepitation LUNG: clear to auscultation, no wheezing, rales, or rhonchi. Able to talk in full complete sentences ABDOMEN: Bowel sounds normoactive, soft, non-tender, without organomegaly or palpable masses. BACK: No pain to palpation with good flexion and extension. Spine midline, no deviations or step-offs EXTREMITIES: Extremities warm and well perfused without clubbing, cyanosis, or edema MUSCULOSKELETAL: Strength 5/5 to bilateral upper/lower extremities NEURO: Awake, alert and oriented x 3. No focal neurological deficits SKIN: Skin color, texture, turgor normal. No rashes or lesions. LABS: Results for orders placed or performed in visit on 01/18/24 Colonoscopy Collection Time: 12/01/22 12:00 AM Result Value Ref Range Colonoscopy Abstracted, no interpretation Lipid panel Collection Time: 12/26/22 12:00 AM Result Value Ref Range LDL/HDL Ratio 2 0 - 4 Triglycerides 55 0 - 150 mg/dL Cholesterol 193 0 - 200 mg/dL HDL 99 40 mg/dL LDL Cholesterol 83 0 - 100 mg/dL Hemoglobin A1c Collection Time: 12/26/22 12:00 AM Result Value Ref Range Hemoglobin A1C 4.9 6.5 % Hepatitis C Screening Collection Time: 12/26/22 12:00 AM Result Value Ref Range Hepatitis C Screening Abstracted Annual BMP Blood Test Collection Time: 12/26/22 12:00 AM Result Value Ref Range Annual BMP Blood Test Abstracted IMPRESSION: 1. Late onset Alzheimer's dementia without behavioral disturbance, psychotic disturbance, mood disturbance, or anxiety, unspecified dementia severity (CMS/HCC) 2. Tinnitus of both ears 3. Non-recurrent bilateral inguinal hernia without obstruction or gangrene 4. Weight loss PLAN: He continues to follow up with neurologist. Continue on Aricept 5 mg nightly. I have placed new referral for him to follow up with ENT. No signs of incarceration or strangulation in office today. I placed new referral for him to followup with the [facility] general surgery team. His weight has improved. He has gained 18 lbs since last office visit. His appetite has been good. He will continue with ensure shake supplements. Follow up in 4-5 months for medication review with pcp/team. All questions and concerns were addressed. Lupillo Arechiga verbalizes understanding and agrees withthis treatment plan. Patient was reminded to call or return to the office if any new or existing problems arise. Orders Placed This Encounter Procedures Ambulatory referral to ENT Ambulatory referral to General Surgery AMB REFERRAL TO ENT AMB REFERRAL TO GENERAL SURGERY BRODY Orr on 03/10/2024 at 12:21 PM EST Today's documentation was made using voice recognition software.This note may contain grammatical errors secondary to this software. documented in this encounter Plan of Treatment Scheduled Referrals Name Type Priority Associated Diagnoses Order Schedule Ambulatory referral to ENT Outpatient Referral Routine Tinnitus of both ears 1 Occurrences starting 03/10/2024 until 03/10/2025 Ambulatory referral to General Surgery Outpatient Referral Routine Non-recurrent bilateral inguinal hernia without obstruction or gangrene 1 Occurrences starting 03/10/2024 until 03/10/2025 documented as of this encounter Visit Diagnoses Diagnosis Late onset Alzheimer's dementia without behavioral disturbance, psychotic disturbance, mood disturbance, or anxiety, unspecified dementia severity (CMS/HCC)- Primary Tinnitus of both ears Unspecified tinnitus Non-recurrent bilateral inguinal hernia without obstruction or gangrene Weight loss Loss of weight documented in this encounter Care Teams Furniture Sprayer Relationship Specialty Start Date End Date Vernon Scales MD [address] [place] [phone] PCP - General 02/22/22 documented as of this encounter
--- OUTSIDE RECORDS SUMMARY | 2024-03-19 16:19 | XMS_ITS | Clinical Summary ---
Author Organization [facility] [address] [place] [address] [place] [phone] Phone Care Team Providers Care Record Press Supervisor Name Role Phone Vernon Scales MD Primary Care Provider [phone]- [phone] Medications Medication Sig Dispensed Refills Start Date End Date Status acetaminophen (TYLENOL 8 HOUR) 650 mg 8 hr tablet Take 1 Tablet by mouth 3 times daily as needed for Pain. 11/09/2023 Active cholecalciferol (VITAMIN D-3) 25 mcg (1,000 unit) tablet Take 1,000 Units by mouth daily. 11/09/2023 Active donepeziL (ARICEPT) 5 mg tablet Take 1 Tablet by mouth at bedtime. 11/09/2023 Active nutritional drink (Ensure) liquid Take 1 Can by mouth daily. AYDE-99 One Daily 30/month with 11 refills 11/09/2023 Active psyllium husk (METAMUCIL ORAL) Psyllium (Metamucil Premium Blend) 52.63 % Powder Take 3.4 g by mouth 2 times daily. 11/09/2023 Active Active Problems Problem Noted Date Diagnosed Date Constipation 11/09/2023 Late onset Alzheimer's demen tia without behavioral disturbance, psychotic disturbance, mood disturbance, or anxiety 05/08/2023 Non-recurrent bilateral ingu inal hernia without obstruction or gangrene 05/08/2023 Tinnitus of both ears 05/08/2023 Hepatomegaly 03/28/2022 History of ETOH abuse 03/28/2022 Encounters Date Type Department Care Team Description 03/10/2024 10:30 AM EST Office Visit Adult Medicine [address] [phone] Brionna Pabon PA Late onset Alzheimer's dementia without behavioral disturbance, psychotic disturbance, mood disturbance, or anxiety, unspecified dementia severity (CMS/HCC) (Primary Dx); Tinnitus of both ears; Non-recurrent bilateral inguinal hernia without obstruction or gangrene; Weight loss from Last 3 Months Immunizations Name Administration Dates Next Due Influenza trivalent, 0.5mL (Fluad) 65yo and olde r 11/09/2023 Pneumococcal conjugate 20 va lent (Prevnar 20, PCV 20) 2mo and older 03/28/2022 Tdap Tetanus diptheria acell ular pertussis (Boostrix; Adacel) 7yo and older 07/26/2022 Surgical History Surgery Date Site/Laterality Comments OTHER SURGICAL HISTORY PROCEDURE: DENIES PREVIOUS SURGERY Medical History Medical History Date Comments Cognitive dysfunction DX:Cogniti ve dysfunction Uncomplicated alcohol abuse DX:U ncomplicated alcohol abuse Family History Medical History Relation Name Comments Coronary artery disease Neg Hx Diabetes Neg Hx Other cancer Neg Hx Relation Name Status Comments Brother Alive Father Maternal Grandfather Maternal Grandmother Mother Paternal Grandfather Paternal Grandmother Sister Alive Social History Tobacco Use Types Packs/Day Years [...] file Not on file Not on file Obstetrics History Last Filed Vital Signs Vital Sign Reading [...] Mass Index 25.94 03/10/2024 10:14 AM EST Plan of Treatment Health Maintenance Due Date Last Done Comments Zoster Vaccines (1 of 2) 2004 Depression Screening 03/23/2023 Falls Risk Assessment 03/23/2023 Medicare Annual Wellness Visit 03/23/2023 Social Influencers of Health Screening 03/23/2023 Cholesterol Screening (Lipid Panel) 12/27/2027 12/26/2022 RSV Immunization Patients 60 + Years Old (1 - 1-dose 75+ series) 2029 DTaP,Tdap,and Td Vaccines (2 - Td or Tdap) 07/26/2032 07/26/2022 Colorectal Cancer Screening: Colonoscopy 12/01/2032 12/01/2022 Pneumococcal Vaccine: 65+ Years Completed 03/28/2022 Hepatitis C Screening Completed 12/26/2022 COVID-19 Vaccine Completed 12/05/2023, 12/25/2022 Influenza Vaccine Completed 12/05/2023, 11/09/2023, 11/22/2022 HIB Vaccines Aged Out No longer eligi ble based on patient's age to complete this topic HPV Vaccines Aged Out No longer eligi ble based on patient's age to complete this topic Hepatitis A Vaccines Aged Out No long er eligible based on patient's age to complete this topic Hepatitis B Vaccines Aged Out No long er eligible based on patient's age to complete this topic IPV Vaccines Aged Out No longer eligi ble based on patient's age to complete this topic MMR Vaccines Aged Out No longer eligi ble based on patient's age to complete this topic Meningococcal ACWY Vaccine Aged Out N o longer eligible based on patient's age to complete this topic RSV Immunization Patients Under 20 months Aged Out No longer eligible b ased on patient's age to complete this topic Varicella Vaccines Aged Out No longer eligible based on patient's age to complete this topic Procedures Procedure Name Priority Date/Time Associated Diagnosis Comments HEPATITIS C SCREENING Routine 12/26/2022 LIPID PANEL Routine 12/26/2022 COLONOSCOPY Routine 12/01/2022 from Last 3 Months or Most Recently Relevant to Health Maintenance Results * Hepatitis C Screening (12/26/2022) Pathologist [facility] Hepatitis C Screening Abstracted Historical Provider MD ALONSO MONCADA E * Lipid panel (12/26/2022) [facility] LDL/HDL Ratio 2 0 - 4 Triglycerides 55 0 - 150 mg/dL Cholesterol 193 0 - 200 mg/dL HDL 99 40 mg/dL LDL Cholesterol 83 0 - 100 mg/dL Blood Venous blood specimen / Unknown Historical Provider LAB BLOOD ORDERAB LES * Hm Colonoscopy (12/01/2022) Pathologist [facility] Colonoscopy Abstracted, no interpretation Anatomical Region Laterality Modality Other Historical Provider MD ALONSO Sinha from Last 3 Months or Most Recently Relevant to Health Maintenance Care Teams Record Press Supervisor Relationship Specialty Start Date End Date Vernon Scales MD [address] [place] [id number] PCP - General 02/22/22
[2024-03-19 17:19] VITALS: BP 113/74; PULSE 83; RESP 16; TEMP 36.8; O2SAT 100
== END 2024-03-19 17:19 | disposition home or self-care (01) ==
PROVIDERS: Emergency Provider Emergency Medicine Emergency Medical Services
DX: M16.12 Unilateral primary osteoarthritis, left hip (principal); R10.2 Pelvic and perineal pain; Z79.899 Other long term (current) drug therapy
CPT/HCPCS: 36415; 73502; 80053; 85025; 99283

== ENCOUNTER → 2024-03-19 14:00 | Outpatient (BNV) | payer MEDICARE, MEDICAID, SELFPAY | PROVIDERS: Emergency Provider Emergency Medicine Emergency Medical Services; Visit Provider Radiology Diagnostic Radiology | DX: M25.552 Pain in left hip (principal) | CPT/HCPCS: 73502 ==

== ENCOUNTER 2024-04-01 09:25 | Outpatient (AMB) | payer MEDICARE, MEDICAID, SELFPAY ==
--- NOTE | 2024-04-01 09:32 | A.OFFVIS_ITS ---
Vital Signs 04/01/24 09:34 Height 5 ft 11 in Weight 190 lb BMI 26.5 BP 142/73 H Blood Pressure Location Rt brachial Position Sitting Pulse 73 Intake Visit Reasons: Bilaeral inguinal hernia/surg site pain Intake Note: Patient scheduled today's appointment c/o pain at bilateral inguinal hernia surgical site. ~ Open bilateral inguinal herniorrhaphy with Bard mesh 09-06-2023. Patient c/o: pain never completely went away. Taking ASA, acetaminophen 650mg 3X QD as needed. Double Needle Stitcher Required: No Accompanied by: Marva SHETH from [facility] Allergies No Known Allergies Allergy (Verified 04/01/24 09:34) HPI Comments Details: Patient presents from his extended care facility with complaining of left b uttock discomfort. He had bilateral inguinal hernia repair several months ago. He is not really having any issues with that. He is tolerating a diet. Having regular bowel habits. He states he fell on his left buttock /has sustained trauma here in the distant past but does not recall any trauma to the area recently. Patient is otherwise tolerating a diet. Having regular bowel habits.. Patient was not the best historian secondary to his history of dementia [facility] Medical History Dementia ETOH abuse Surgical History Hx of bilateral inguinal hernia repair (09/06/23) No pertinent past surgical history Social History Unable to assess alcohol history related to: Unable to respond Alcohol intake: current Alcohol intake frequency: former alcohol drinker Patient Tobacco Use Status: Never used Tobacco service: No Physical Exam Vital Signs: Last Vital Signs Pulse 73 04/01/24 09:34 BP 142/73 H 04/01/24 09:34 BMI result Body Mass Index 26.5 GI Other: Abdomen is soft. Patient has significant pannus. Bilateral inguinal hernia incisions well healed. No evidence of any recurrences. Bilateral buttock demonstrated no obvious pathology. No evidence of any bruising ecchymosis or infections. Assessment & Plan Assessment & Plan (1) Left buttock pain: Code(s): M79.18 - Myalgia, other site Category: Surgical Plan At present, no acute surgical issues. Patient was facility were given a form stating that if sym progress or worsen , patient called the office for further follow-up. Otherwise he will follow-up p.r.n.. All questions answered Coding Level of Care Code Est Pt Level 3 (86899) Diagnoses Left buttock pain M79.18
[2024-04-01 09:34] VITALS: BP 142/73; PULSE 73; BMI 26.5
--- OUTSIDE RECORDS SUMMARY | 2024-04-01 09:55 | XMS_ITS | Encounter Summary ---
Author Organization [facility] Address [address] [place] [address] Care Team Providers Care Financial Adviser Name Role Phone Vernon Scales MD Primary Care Provider [phone]- [phone] Reason for Referral * Consultation (Routine) - Pending Review Specialty Diagnoses / Procedures Referred By Timothy petersen Referred To Contact General Surgery Diagnoses Non-recurrent bilateral inguinal hernia without obstruction or gangrene Brionna Pabon PA [address] [place] [address] Referral ID Status Reason Start Date Expiration Date Visits Requested Visits Authorized [id number] Pending Review Specialty Services Required 03/10/2024 03/10/2025 1 1 * Consultation (Routine) - Authorized Specialty Diagnoses / Procedures Referred By Timothy petersen Referred To Contact Otolaryngology Diagnoses Tinnitus of both ears Brionna Pabon PA [address] [place] [phone] [facility] [address] [place] [address] Referral ID Status Reason Start Date Expiration Date Visits Requested Visits Authorized [id number] Authorized Specialty Services Required 03/10/2024 03/10/2025 1 1 Reason for Visit * Reason Comments Follow-up Encounter Details Date Type Department Care Team ([facility] Contact Info) Description 03/10/2024 10:30 AM EST Office Visit [facility] [address] [place] [phone] Brionna Pabon PA [address] [place] [address] Late onset Alzheimer's dementia without behavioral disturbance, [...] referral for him to follow up with [facility] general surgery team. He follows up with [...] referral for him to followup with the [facility] general surgery team. His weight has [...] weight documented in this encounter Care Teams Financial Adviser Relationship Specialty Start Date End Date Vernon Scales MD [address] [place] [phone] PCP - General 02/22/22 documented as of this encounter
--- OUTSIDE RECORDS SUMMARY | 2024-04-01 09:55 | XMS_ITS | Clinical Summary ---
Author Organization [facility] [address] [place] [address] [place] [phone] Phone Care Team Providers Care Resaw Operator Name Role Phone Vernon Scales MD Primary Care Provider [phone]- [phone] Medications Medication Sig Dispensed Refills Start Date [...] 10:30 AM EST Office Visit Adult Medicine [address] [phone] Brionna Pabon PA Late onset Alzheimer's dementia [...] Results * Hepatitis C Screening (12/26/2022) Pathologist [facility] Hepatitis C Screening Abstracted Historical Provider MD ALONSO MONCADA E * Lipid panel (12/26/2022) [facility] LDL/HDL Ratio 2 0 - 4 Triglycerides 55 0 - 150 mg/dL Cholesterol 193 0 - 200 mg/dL HDL 99 40 mg/dL LDL Cholesterol 83 0 - 100 mg/dL Blood Venous blood specimen / Unknown Historical Provider LAB BLOOD ORDERAB LES * Hm Colonoscopy (12/01/2022) Pathologist [facility] Colonoscopy Abstracted, no interpretation Anatomical Region Laterality Modality Other Historical Provider MD ALONSO Sinha from Last 3 Months or Most Recently Relevant to Health Maintenance Care Teams Resaw Operator Relationship Specialty Start Date End Date Vernon Scales MD [address] [place] [id number] PCP - General 02/22/22
== END 2024-04-01 09:39 | disposition home or self-care (01) ==
PROVIDERS: PCP Physician Assistant; Visit Provider Surgery
DX: M79.18 Myalgia, other site (principal)
CPT/HCPCS: 99213

== ENCOUNTER → 2024-04-01 09:25 | Outpatient (BNVA) | payer MEDICARE, MEDICAID, SELFPAY | PROVIDERS: PCP Physician Assistant; Visit Provider Surgery | DX: M79.18 Myalgia, other site (principal) | CPT/HCPCS: 99212 ==

== ENCOUNTER 2025-01-22 15:25 | Emergency (ER) | payer MEDICARE, MEDICAID, SELFPAY ==
--- NOTE | ~2025-01-22 | CT_ITS ---
CLINICAL HISTORY: fall, +head strike CT head without contrast Comparison: CT/SR - CT HEAD/BRAIN WO IV CON - 02/25/24 16:57 EST Findings: No intra-axial mass, midline shift, hydrocephalus, or acute hemorrhage. Mild heterogeneous low attenuation in the periventricular white matter. The visualized paranasal sinuses and mastoid air cells are normal. The orbits are within normal limits. There is no acute fracture. Air-fluid level in the left maxillary sinus. IMPRESSION: 1. Mild chronic periventricular microvascular ischemic disease. 2. No acute intracranial findings. This document has been electronically signed by: Marek Braxton MD on 01/22/2025 17:33:23
--- NOTE | ~2025-01-22 | CT_ITS ---
CLINICAL HISTORY: fall, +head strike CT cervical spine without contrast Comparison: CT/SR - CT CERVICAL SPINE WO IV CON - 02/25/24 16:57 EST Findings: C4-5: Grade 1 retrolisthesis C4 over C5. Moderate DJD. Mild anterior spurring. C7-T1: Grade 1 anterolisthesis C7 over T1. Moderate DJD. No significant degenerative change. Mild osteopenia. No acute findings on limited view of the intracranial contents. Soft tissues of the neck are normal. Lung apices are clear. C1-2: Mild anterior osteoarthrosis. C5-6: Moderate DJD. Mild anterior spurring. C6-7: Severe DJD. Mild anterior spurring. IMPRESSION: 1. Grade 1 retrolisthesis C4 over C5 with moderate degenerative joint disease. 2. Grade 1 anterolisthesis C7 over T1 with moderate degenerative joint disease. 3. Severe degenerative joint disease at C6-7. 4. Moderate degenerative joint disease at C5-6. 5. Mild osteopenia. 6. No acute osseous injury. This document has been electronically signed by: Marek Braxton MD on 01/22/2025 17:34:04
--- NOTE | 2025-01-22 15:26 | ED.FALL ---
HPI - Fall General Chief Complaint: Fall Stated Complaint: SNF Unwit fall w/ HS & cut,+ collar, gait change Time Seen by Provider: 01/22/25 15:47 Source: patient, EMS and RN notes reviewed Mode of arrival: EMS Limitations: no limitations History of Present Illness ED Provider: Marisabel Fortune PA-C HPI Narrative: This is a 69-year-old male, with a past medical history of dementia, who presents emergency department via EMS from [facility] with concerns of head pain status post trip and fall which occurred several hours ago. Patient states that he was walking to the store from his home and accidentally tripped and fell backwards striking his posterior head. Denies loss of consciousness. He states that he was on the ground for several minutes until he was able to get himself back up. He walked back to the [facility] where another individual called EMS to transport him to the hospital. Patient states that he is having head pain, otherwise denies any other pain. He states that he is feeling well prior to the fall. He denies any headache, dizziness, blurred vision, double vision, chest pain, shortness of breath, abdominal pain, nausea, vomiting or diarrhea. Denies any other pain or injury. Patient is not on anticoagulation. MD complaint: fall Onset (ago): hour(s) Fall from: standing Fall witnessed: no Place fall occurred: street Loss of consciousness: none Prolonged down time: no Symptoms prior to fall: none Context: tripped/slipped Location of injury: head Severity: moderate Quality: aching Associated symptoms (after fall): headache Related Data Home Medications ?Medication ?Instructions ?Recorded ?Confirmed cholecalciferol (vitamin D3) 25 25 mcg PO DAILY 04/26/23 01/23/25 mcg (1,000 unit) tablet donepezil 10 mg tablet 10 mg PO DAILY 09/17/23 01/23/25 acetaminophen 650 mg 650 mg PO TID PRN Pain 01/23/25 01/23/25 tablet,extended release fluoxetine 10 mg capsule 10 mg PO DAILY 01/23/25 01/23/25 psyllium husk 3.4 gram/5.4 gram 3.4 g PO BID 01/23/25 01/23/25 oral powder (Metamucil) Previous Rx's ?Medication ?Instructions ?Recorded ibuprofen 400 mg tablet 400 mg PO TID PRN fever or pain 03/19/24 #30 tabs Allergies Allergy/AdvReac Type Severity Reaction Status Date / Time No Known Allergies Allergy Verified 01/22/25 15:37 Review of Systems Review of Systems: Constitutional : No Fever, No Chills ENT/Mouth : No sore throat, No Rhinorrhea Eyes: No Eye Pain, No Swelling, No Redness Cardiovascular : No Chest Pain, No SOB Respiratory : No Cough, No Sputum Gastrointestinal : No Nausea, No Vomiting, No Diarrhea, No abdominal Pain Genitourinary : No Dysuria, No Hematuria Musculoskeletal : No joint pain, No Myalgias, No Joint Swelling Skin : No Skin Lesions Neuro : No Weakness, No Numbness, + Headache All other systems reviewed and are negative Yes all other systems are reviewed and are negative Constitutional: Constitutional: Reports as per [facility] Past Medical History Medical History Dementia ETOH abuse Surgical History Hx of bilateral inguinal hernia repair (09/06/23) No pertinent past surgical history Social History Social History Alcohol intake: current Alcohol intake frequency: former alcohol drinker Patient Tobacco Use Status: Never used Tobacco Advance Directives: No Advance Directives Information Provided: No Do you have a plan to hurt others: No Plan service: No Physical Exam Vital Signs: Vital Signs: Last Vital Signs Temp 98.1 F 01/23/25 02:45 Pulse 73 01/23/25 06:22 Resp 16 01/23/25 06:22 BP 113/49 L 01/23/25 06:22 Pulse Ox 94 01/23/25 06:22 O2 Del Method Room Air 01/23/25 06:22 BMI result Body Mass Index 27.8 Const: General: cooperative, comfortable and no acute distress Orientation/consciousness: patient oriented x3 Limitations: no limitations HEENT: Other: Patient with a large hematoma noted to the occiput. Superficial abrasion noted, no open wounds, no active bleeding. Mildly tender to palpation. Head: Yes normal to inspection, Yes normocephalic and Yes atraumatic Ears: hearing grossly normal bilaterally General nose exam: Normal external nose present Face and sinus: Yes normal facial exam Mouth: Normal oral and palatal mucosa present, oropharynx normal and moist mucous membranes Throat: Yes posterior oropharynx normal Eyes: General: appearance normal, both eyes and all related structures Eyelids: Yes eyelids normal Conjunctivae: conjunctivae normal Sclerae: sclerae normal Pupils: Equal, round and reactive pupils present EOM: EOMs intact bilaterally Neck: Other: Cervical collar in place. No cervical midline spine tenderness on examination, no pain to paraspinous muscles. Neck: Yes normal visual inspection, Yes full ROM and Yes no lymphadenopathy Lymphatic: no lymphadenopathy noted Chest: Other: Chest atraumatic, no flail chest. No ecchymosis, nontender, no bony step-off. Chest palpation & inspection: normal inspection of the chest Resp: Effort & Inspection: normal respiratory effort and able to speak in complete sentences Auscultation: clear to auscultation bilaterally, no crackles, no rales, no rhonchi and no wheezes Cardio: Rate: regular rate Rhythm: regular rhythm Heart sounds: S1 normal heart sound present and S2 normal heart sound present GI: Other: Abdomen is soft, nontender, nondistended. No ecchymosis. Inspection: Yes normal to inspection Skin: General skin exam: no rashes or lesions noted Trauma: no lacerations or abrasions Wounds: no wounds Neuro: General: patient oriented x3 and moves all extremities Cranial nerves: Yes CN's II-XII intact bilaterally and Yes Equal, round and reactive pupils present Cognition (Neuro): normal cognition Gait exam (Neuro): Normal gait present Motor exam (neuro): 5/5 motor strength present throughout, Pronator motor function not present and no tremor noted Coordination: [id number] test normal and [id number] test normal Pupils: Normal pupillary reactivity/response: bilateral Extrem: General: Yes normal to inspection Right upper extremity: normal to inspection Left upper extremity: normal to inspection Right lower extremity: normal to inspection Left lower extremity: normal to inspection NIH Stroke Scale Internal: Initial- Upon Arrival Level of Consciousness: Alert Level of Consciousness Questions: Answers both questions correctly Level of Consciousness Commands: Performs both tasks correctly Best Gaze: Normal Visual: No visual loss Facial Palsy: Normal Motor Arm (Right): No drift Motor Arm (Left): No drift Motor Leg (Right): No drift Motor Leg (Left): No drift Limb Ataxia: Absent Sensory: Normal Best Language: No aphasia Dysarthia: Normal Extinction and Inattention: No abnormality Score: 0 Course Course Course Narrative: Time: 08:22 Date: 01/23/25 Provider: BRODY Pack Patient in physician observation for case management needs. No acute events reported overnight.? No current issues or complaints. VS stable. Patient is pending PT/CM eval. Will continue to monitor. Time: 13:31 Date: 01/23/25 Provider: BRODY Pack Physical therapy evaluated patient > recommending discharge back to assisted living facility with RW and PT services. I spoke w/ Dianne from who will be arranging patient transport back to [facility]. Patient is aware of and agreeable with disposition. Physician observation ended at 1332. Medications Administered Discontinued Medications Generic Name Dose Route Start Last Admin Trade Name Freq PRN Reason Stop Dose Admin Bacitracin 1 appl 01/22/25 18:36 01/22/25 18:44 Bacitracin Oint 0.9 Gm Packet TOPICAL 01/22/25 18:37 1 appl ONCE ONE Administration Protocol Diphtheria/Tetanus/Acell Pertussis 0.5 ml 01/22/25 18:19 01/22/25 18:44 Diphth,Pertus(Acell),Tet Adult 0.5 Ml Syringe IM 01/22/25 18:20 0.5 ml .ONCE ONE Administration Sodium Chloride 1,000 mls @ 500 mls/hr 01/22/25 16:32 01/22/25 19:20 Ns IV 01/22/25 18:31 Infused .Q2H ONE Infusion Medical Decision Making Medical Decision Making [facility] Narrative: This is a 69-year-old male, with a past medical history of dementia, who presents emergency department via EMS from intermediate facility with concerns of head pain status post trip and fall which occurred several hours ago. On arrival, vital signs within normal limits, he is speaking in full sentences under no acute distress. He is neurologically intact with no focal deficits. Patient with hematoma on the posterior aspect of his head. No LOC he is not on anticoagulation. Patient reports mechanical fall. However will obtain basic labs, EKG, troponin given history of dementia although he seems to be very independent, and oriented. Patient arrives in cervical collar. CT head and neck ordered. 7:51 PM 01/22/2025 (Marisabel Fortune PA-C): CT head and neck revealed no acute findings. Labs returned, he has no leukocytosis, H&H revealing a normocytic anemia. Chemistry revealing slight hyponatremia at 131 slowly infused IV normal saline. Total bili 1.4, he has no abdominal pain. Troponin with negative delta change. He had no chest pain or shortness for breath. This was a pure mechanical fall. Wound was cleansed with saline, and dressed with bacitracin and sterile dressing. Discussed wound care with patient. He was given strict return precautions. I had patient get up off of the stretcher to see him walk. He states that he does not use a walker when ambulatory. When using walker, patient is very steady, without walker, patient appears to be slightly unsteady. Patient is eager for discharge however it is unclear what sort of services they provide at [facility]. 8:20 PM 01/22/2025 (Marisabel Fortune PA-C): I called over to [facility] and they are a assisted living, and if patient does need further assistance, they are unable to offer this. Given slight side step with ambulation, patient will be best served diffuse spent the night here, and if he was evaluated by Physical therapy tomorrow morning. Gina Mendoza states that they can not take anyone that are not 100% independent as they have a significant amount of stairs, and often times are short staffed. Discussed this with patient. Patient will be made PT case management for evaluation in the morning. Differential Diagnosis Differential Diagnoses: The differential diagnosis associated with the presentation includes ICH, SDH, electrolyte derangement, C-spine fracture, contusion whiplash, cervical strain. Lab Data [facility] Lab Attestation statement: I reviewed the patient's lab results. See [facility] 01/22/25 16:08 01/22/25 16:08 Labs: Lab Results 01/22/25 01/22/25 Range/Units 16:08 18:58 WBC 7.4 (4.8-10.8) X10*3/uL RBC 4.14 L (4.60-5.80) X10*6/uL Hgb 12.4 L (14.0-18.0) g/dl Hct 35.9 L (42.0-52.0) % MCV 86.7 (80.0-98.0) fL MCH 30.0 (27.0-33.0) pg MCHC 34.5 (31.0-36.0) g/dl RDW 12.7 (11.0-16.0) % Plt Count 189 (160-400) X10*3/uL MPV 8.3 L (9.4-12.4) fL Immature Gran % (Auto) 0.7 H (0.0-0.4) % Neut % (Auto) 74.7 H (45-73) % Lymph % (Auto) 9.2 L (20-40) % [place] % (Auto) 12.6 H (2-11) % Eos % (Auto) 1.6 (0-4) % Baso % (Auto) 1.2 (0-2) % Lymph # (Auto) 0.7 L (1.2-4.9) X10*3/uL [place] # (Auto) 0.9 (0.1-1.2) X10*3/uL Eos # (Auto) 0.1 (0.0-0.4) X10*3/uL Baso # (Auto) 0.1 (0.0-0.2) X10*3/uL Abs Immat Gran (auto) 0.05 H (0.00-0.03) X10*3/uL Absolute Neuts (auto) 5.5 (2.0-8.3) x10*3/uL Absolute Nucleated RBC 0.000 (0.0-0.012) X10*3/uL Nucleated RBC % (auto) 0.0 (0.0-0.2) /100WBC Sodium 131 L (135-145) mmol/L Potassium 4.5 (3.3-5.1) mmol/L Chloride 100 (96-108) mmol/L Carbon Dioxide 25 (22-29) mmol/L Anion Gap 11 L (12-20) BUN 14 (9-16) mg/dL Creatinine 0.61 (0.5-1.4) mg/dL Estim Creat Clear Calc 123.6 Estimated GFR > 60 Random Glucose 97 (60-115) mg/dL Calcium 9.0 (8.4-10.2) mg/dL Magnesium 2.2 (1.6-2.6) mg/dL Total Bilirubin 1.4 H (0.0-1.0) mg/dL AST 21 (5-37) U/L ALT 7 (0-40) U/L Alkaline Phosphatase 76 (39-117) U/L Troponin I High Sens 3.6 5.1 (<3.5-35.0) ng/L Total Protein 6.0 L (6.5-8.0) g/dL Albumin 3.8 (3.5-5.0) g/dL Radiology Impression Discussion of test interpretation with radiology: I have reviewed the radiologist's reading. Radiologist Impression: CLINICAL HISTORY: fall, +head strike CT cervical spine without contrast Comparison: CT/SR - CT CERVICAL SPINE WO IV CON - 02/25/24 16:57 EST Findings: C4-5: Grade 1 retrolisthesis C4 over C5. Moderate DJD. Mild anterior spurring. C7-T1: Grade 1 anterolisthesis C7 over T1. Moderate DJD. No significant degenerative change. Mild osteopenia. No acute findings on limited view of the intracranial contents. Soft tissues of the neck are normal. Lung apices are clear. C1-2: Mild anterior osteoarthrosis. C5-6: Moderate DJD. Mild anterior spurring. C6-7: Severe DJD. Mild anterior spurring. IMPRESSION: 1. Grade 1 retrolisthesis C4 over C5 with moderate degenerative joint disease. 2. Grade 1 anterolisthesis C7 over T1 with moderate degenerative joint disease. 3. Severe degenerative joint disease at C6-7. 4. Moderate degenerative joint disease at C5-6. 5. Mild osteopenia. 6. No acute osseous injury. This document has been electronically signed by: Marek Braxton MD on 01/22/2025 17:34:04 Dictated By: Marek Braxton MD CT head without contrast Comparison: CT/SR - CT HEAD/BRAIN WO IV CON - 02/25/24 16:57 EST Findings: No intra-axial mass, midline shift, hydrocephalus, or acute hemorrhage. Mild heterogeneous low attenuation in the periventricular white matter. The visualized paranasal sinuses and mastoid air cells are normal. The orbits are within normal limits. There is no acute fracture. Air-fluid level in the left maxillary sinus. IMPRESSION: 1. Mild chronic periventricular microvascular ischemic disease. 2. No acute intracranial findings. This document has been electronically signed by: Marek Braxton MD on 01/22/2025 17:33:23 Dictated By: Marek Braxton MD Discharge Plan Discharge Clinical Impression: Fall, Contusion of head Patient Disposition: Home, Self-Care Instructions: Contusion in Adults (ED), Ice Pack Application (ED), Fall Prevention (ED) Additional Instructions: You were seen in the emergency department after a fall. Your CT of your head any new neck do not reveal any injury from the fall. Your blood work was overall reassuring. You have a large hematoma noted to the back of your head. We dressed this with bacitracin as well as a bandage. Please keep this wound clean and dry. Please have the medical staff watch this area for any signs of infection including but not limited to increased redness, swelling, drainage, fevers or chills. If any of these occur, please seek emergent care. We also updated your tetanus shot in the department today. You were evaluated by physical therapy and cleared to return to your living facility. Case management will be arranging home services. If any new or worsening symptoms occur including but not limited to severe headache, dizziness, blurred vision, chest pain, shortness of breath, please seek emergent care. Prescriptions: No Action acetaminophen 650 mg Tablet Extended Release 650 mg PO TID PRN (Reason: Pain) fluoxetine 10 mg capsule 10 mg PO DAILY Metamucil 3.4 gram/5.4 gram powder 3.4 g PO BID cholecalciferol (vitamin D3) 25 mcg (1,000 unit) tablet 25 mcg PO DAILY ibuprofen 400 mg tablet 400 mg PO TID PRN (Reason: fever or pain) Qty: 30 0RF donepezil 10 mg tablet 10 mg PO DAILY Print Language: Turkmen
[2025-01-22 15:33] VITALS: BP 118/70; BP 135/75; PULSE 66; PULSE 70; RESP 18; TEMP 36.8; O2SAT 98; BMI 27.8
--- NOTE | 2025-01-22 15:41 | ECG_ITS ---
Test Reason : FALL Blood Pressure : */* mmHG Vent. Rate : 60 BPM Atrial Rate : 60 BPM P-R Int : 214 ms QRS Dur : 146 ms QT Int : 466 ms P-R-T Axes : 47 -11 23 degrees QTcB Int : 466 ms Sinus rhythm with 1st degree A-V block Right bundle branch block Abnormal ECG When compared with ECG of 25-Feb-2024 15:59, Premature ventricular complexes are no longer Present Referred By: Marisabel Frotune Electronically Signed By: Thom Zamora
--- OUTSIDE RECORDS SUMMARY | 2025-01-22 15:55 | XMS_ITS | Encounter Summary ---
Author Organization [facility] Address [address] [place] [address] Care Team Providers Care Cardiac Care Nurse Name Role Phone Vernon Scales MD Primary Care Provider [phone] Encounter Details Date Type Department Care Team (Late st Contact Info) Description 11/18/2024 Lab Requisition [facility] - Main Lab [address] [facility] [place] [address] Vince Grant MD [address] [place] [address] Vitamin D deficiency, unspecified; Abnormal weight loss Social History Tobacco Use Types Packs/Day Years Used Date Smoking Tobacco: Never Smokeless Tobacco: Never Alcohol Use Standard Drinks/Week Comments Not Currently 0 (1 standard drink = 0.6 oz pur e alcohol) Sex and Gender Information Value Date Recorded Sex Assigned at Not on file Legal Sex Male 8:58 PM EST Gender Identity Not on file Sexual Orientation Not on file documented as of this encounter Plan of Treatment Not on file documented as of this encounter Procedures Procedure Name Priority Date/Time Associated Diagnosis Comments VITAMIN B12 AND FOLATE Routine 11/18/2024 6:54 AM EDT Vitamin D deficiency, unspecified Abnormal weight loss VITAMIN D 25 HYDROXY Routine 11/18/2024 6:54 AM EDT Vitamin D deficiency, unspecified Abnormal weight loss THYROID STIMULATING HORMONE Routine 11/18/2024 6:54 AM EDT Vitamin D deficiency, unspecified Abnormal weight loss documented in this encounter Results * Vitamin D 25 hydroxy (11/18/2024 6:54 AM EDT) [facility] Vit D, 25-Hydroxy 31.7 30.0 - 80.0 ng/mL LAB CHEMISTRY METHOD 11/18/2024 12:42 PM EDT [facility] Blood Venous blood specimen / Unknown Venipuncture / Unknown 11/18/2024 6:54 AM EDT 11/18/2024 10:08 AM EDT us Vince Grant MD LAB BLOOD ORDERABLES Final Result [facility] [address] [place] [address], [place] [phone] * Thyroid stimulating hormone (11/18/2024 6:54 AM EDT) [facility] TSH 1.04 0.40 - 4.00 mcIU/mL LAB CHEMISTRY METHOD 11/18/2024 12:42 PM EDT [facility] Blood Venous blood specimen / Unknown Venipuncture / Unknown 11/18/2024 6:54 AM EDT 11/18/2024 10:08 AM EDT us Vince Grant MD LAB BLOOD ORDERABLES Final Result [facility] [address] [place] [address], [place] [phone] * Vitamin B12 and folate (11/18/2024 6:54 AM EDT) [facility] Vitamin B-12 280 250 - 900 pcg/mL LAB CHEMISTRY METHOD 11/18/2024 11:49 AM EDT [facility] Folate 12.8 2.8 - 17.0 ng/ml LAB CHEMISTRY METHOD 11/18/2024 11:49 AM EDT [facility] Blood Venous blood specimen / Unknown Venipuncture / Unknown 11/18/2024 6:54 AM EDT 11/18/2024 10:08 AM EDT Vince Grant MD LAB BLOOD ORDERABLES Final Result [facility] ([facility]) [facility] [address] [place] [address], documented in this encounter Visit Diagnoses Diagnosis Vitamin D deficiency, unspecified Abnormal weight loss Loss of weight documented in this encounter Care Teams Cardiac Care Nurse Relationship Specialty Start Date End Date Vernon Scales MD [address] [place] [id number] PCP - General 02/22/22 documented as of this encounter
--- OUTSIDE RECORDS SUMMARY | 2025-01-22 15:55 | XMS_ITS | Clinical Summary ---
Author Organization [facility] [address] [place] [address] [place] [phone] Phone Care Team Providers Care Oakes Machine Operator Name Role Phone Vernon Scales MD Primary Care Provider [phone] Medications acetaminophen (TYLENOL 8 HOUR) 650 mg 8 [...] disturbance, psychotic disturbance, mood disturbance, or anxiety (CMS/HCC V24, CMS/HCC V28) 05/08/2023 Non-recurrent bilateral ingu inal hernia without obstruction or gangrene 05/08/2023 Tinnitus of both ears 05/08/2023 Hepatomegaly 03/28/2022 History of ETOH abuse 03/28/2022 Encounters Date Type Department Care Team Description 11/18/2024 Lab Requisition [facility] - Main Lab [address] [place] [address] Vince Grant MD Vitamin D deficiency, unspecified; Abnormal weight loss from Last 3 Months Immunizations Immunization Administration Dates Next Due Influenza trivalent, 0.5mL [...] on file Sexual Orientation Not on file Obstetrics History Last Filed Vital Signs Vital Sign Reading Time Taken Comments Blood Pressure 138/86 03/10/2024 10:33 AM EST Pulse 66 03/10/2024 10:14 AM EST Temperature 36.6 C (97.8 F) 03/10/2024 10:14 AM EST Respiratory Rate 14 03/10/2024 10:14 AM EST Oxygen Saturation - - Inhaled Oxygen Concentration - - Weight 84.4 kg (186 lb) 03/10/2024 10:14 AM EST Height 180.3 cm (5' 11 ) 03/10/2024 10:14 AM EST Body Mass Index 25.94 03/10/2024 10:14 AM EST Plan of Treatment Health Maintenance Due Date Last Done Comments Zoster Vaccines (1 of 2) 2004 Falls Risk Assessment 03/23/2023 Medicare Annual Wellness Visit 03/23/2023 Social Influencers of Health Screening 03/23/2023 Depression Screening 02/27/2024 COVID-19 Vaccine (3 - 2024-2 6 season) 2024 12/05/2023, 12/25/2022 Influenza Vaccine (#1) 2024 , 11/09/2023, 11/22/2022 Cholesterol Screening (Lipid Panel) 12/27/2027 12/26/2022 RSV Immunization Adult Patients (1 - 1-dose 75+ series) 2029 DTaP,Tdap,and Td Vaccines (2 - Td or Tdap) 07/26/2032 07/26/2022 Colorectal Cancer Screening: Colonoscopy 12/01/2032 12/01/2022 Pneumococcal Vaccine: 50+ Years Completed 03/28/2022 Hepatitis C Screening Completed 12/26/2022 HIB Vaccines Aged Out No longer eligi [...] patient's age to complete this topic Meningococcal B Vaccine Aged Out No l onger eligible based on patient's age to complete this topic RSV Immunization Patients Under 20 months Aged Out No longer eligible b ased on patient's age to complete this topic Varicella Vaccines Aged Out No longer eligible based on patient's age to complete this topic Procedures Procedure Name Priority Date/Time Associated Diagnosis Comments VITAMIN D 25 HYDROXY Routine 11/18/2024 6:54 AM EDT Vitamin D deficiency, unspecified Abnormal weight loss THYROID STIMULATING HORMONE Routine 11/18/2024 6:54 AM EDT Vitamin D deficiency, unspecified Abnormal weight loss VITAMIN B12 AND FOLATE Routine 11/18/2024 6:54 AM EDT Vitamin D deficiency, unspecified Abnormal weight loss HEPATITIS C SCREENING Routine 12/26/2022 LIPID PANEL Routine 12/26/2022 COLONOSCOPY Routine 12/01/2022 from Last 3 Months or Most Recently Relevant to Health Maintenance Results * Vitamin B12 and folate (11/18/2024 6:54 AM EDT) [facility] Vitamin B-12 280 250 - 900 pcg/mL LAB CHEMISTRY METHOD 11/18/2024 11:49 AM EDT [facility] Folate 12.8 2.8 - 17.0 ng/ml LAB CHEMISTRY METHOD 11/18/2024 11:49 AM EDT [facility] Blood Venous blood specimen / Unknown Venipuncture / Unknown 11/18/2024 6:54 AM EDT 11/18/2024 10:08 AM EDT us Vince Grant MD LAB BLOOD ORDERABLES Final Result Performing Organization Address City/[facility]/ZIP Co de Phone Number [facility] [address] [place] [address], [place] [phone] * Vitamin D 25 hydroxy (11/18/2024 6:54 AM EDT) [facility] Vit D, 25-Hydroxy 31.7 30.0 - 80.0 ng/mL LAB CHEMISTRY METHOD 11/18/2024 12:42 PM EDT [facility] Blood Venous blood specimen / Unknown Venipuncture / Unknown 11/18/2024 6:54 AM EDT 11/18/2024 10:08 AM EDT us Vince Grant MD LAB BLOOD ORDERABLES Final Result [facility] [address] [place] [address], [place] [phone] * Thyroid stimulating hormone (11/18/2024 6:54 AM EDT) [facility] TSH 1.04 0.40 - 4.00 mcIU/mL LAB CHEMISTRY METHOD 11/18/2024 12:42 PM EDT [facility] Blood Venous blood specimen / Unknown Venipuncture / Unknown 11/18/2024 6:54 AM EDT 11/18/2024 10:08 AM EDT Vince Grant MD LAB BLOOD ORDERABLES Final Result [facility] [address] [place] [address], [place] [phone] * Hepatitis C Screening (12/26/2022) [facility] Hepatitis C Screening Abstracted Historical Frances GOMEZ HEALTH MAINTENANCE Final Result * Lipid panel (12/26/2022) [facility] LDL/HDL Ratio 2 0 - 4 Triglycerides 55 0 - 150 mg/dL Cholesterol 193 0 - 200 mg/dL HDL 99 >=40 mg/dL LDL Cholesterol 83 0 - 100 mg/dL Blood Venous blood specimen / Unknown Historical Frances GOMEZ LAB BLOOD ORDERABLES Sravani l Result * Colonoscopy (12/01/2022) [facility] Colonoscopy Abstracted, no interpretation Anatomical Region Laterality Modality Other Historical Provider HEALTH MAINTENANCE Final Result from Last 3 Months or Most Recently Relevant to Health Maintenance Insurance [place]ICA[place] AETNA MEDICARE ADVANTAGE Care Teams Oakes Machine Operator Relationship Specialty Start Date End Date Vernon Scales MD [address] [place] [phone] PCP - General 02/22/22
--- OUTSIDE RECORDS SUMMARY | 2025-01-22 15:55 | XMS_ITS | Continuity of Care Document ---
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 Cerumen impaction removed bilaterally. Bilateral TMs are intact with well aerated middle ear spaces. Audiometric testing demonstrated mild to moderate sensorineural hearing loss bilaterally. The pathophysiology of sensorineural hearing loss and tinnitus was described. Masking to control awareness of tinnitus, avoidance of caffeine, and stress management were recommended. For symptoms significantly affecting the quality of life, cognitive behavioral therapy and tinnitus retraining therapy could be considered. Tinnitus brochure provided. I recommended use of hearing protection in loud noise environments. He is a candidate for amplification and medical clearance was provided today. He will follow up yearly for audiometric testing, or sooner with worsening tinnitus, vertigo, or changes in his hearing. [email or web address] Not available 11/20/2024 11:53:00 Plan of Treatment Reminders Order Date Submit Date Provider Last Modified By Organization Details Last Modified Time Details Appointments Hearing Test 2025 09:30A M Hearing Test Not available Not available Not available Establish ed 15 2025 09:45A M CECILY KEN PA-C Not available Not available Not available Lab None recorded. Referral None recorded. Procedures None recorded. Surgeries None recorded. Imaging None recorded. Medication Orders None recorded. Patient TargetsNo targets recorded. Patient InstructionsNo instructions recorded. Reason for Referral None Reported. Results Created Date Observation Date Name Description Value Unit Range Abnormal Flag Note LastModifiedBy Organization Detail LastModifiedTime 11/21/19 audio gram No observ ation record ed. BARCODE Not Available 2024 14:08:46 Result Notes None recorded. Problems Name Problem SNOMED Code Status Onset Date Resolution Date Notes Provider Name and Address Organization Details Recorded Time Sensorineur al hearing loss of bilateral ears 966821497 Active 2024 GA MCCLELLAN , AUD [address] [facility],[place] [address], [place], [phone], [facility] - [facility] 10:15:03 Bilateral tinnitus 4074201895078 Active 2024 LAURA THOMAS PA-C [address] [place] [address],[place] [address], [place], [address], [facility] [place] 11:53:03 Impacted cerumen of bilateral ears 4025251780172 108 Active 2024 LAURA HTOMAS PA-C [address] [place] [address],[place] [address], [place], [address], [facility] [place] 11:53:07 Problem Notes None recorded. Procedures Surgical History Date Name Laterality Status Provider Name and Address Organization Details Recorded Time Comp Audio with Tymps - 74103 & 63380 completed GA MCCLELLAN, AUD [address] [facility],[address], [address], [facility] 11/20/2024 10:14:52 Cerumen removal without microscope bilat completed LAURA THOMAS PA-C [address] [facility],[address], [address], [facility] [place] 11/20/2024 11:51:38 Imaging Results None recorded. Procedure Notes None recorded. Medical Equipment None Reported. Vitals None Recorded Social History None recorded. Functional Status None recorded. Mental Status None recorded. Family History Nothing Reported. Medical History No medical history recorded. Past Encounters Encounter ID Performer Location Encounter Start Date Encounter Closed Date Diagnosis/Indication Diagnosis SNOMED-CT Code Diagnosis ICD10 Code Diagnosis IMO Codes Diagnosis Note [id number] LAURA THOMAS PA-C [facility] [address] [place] [address] 11/20/2024 09:48:24 11/20/2024 11:24:23 Sensorineural hearing loss of bilateral ears 236570374 H90.3 [id number] Audiologic al evaluation results: Right ear: Mild sloping to severe sensorineu ral hearing loss with good word recognitio n. Left ear: Mild sloping to moderately severe sensorineu ral hearing loss with good word recognitio n. Tympanomet ry: Right Ear:Type A Left Ear:Type A Bilateral tinnitus 23902 34274 102 H93.13 390307 Impacted c erumen of bilateral ears 9676192898 565704 H61.23 232183 Health Concerns Section Related Observation LastModified by Organization Detai ls LastModified Time None Recorded Concern Status LastModified by Organization Details LastModified Time None Recorded Payers Encounter Date Sequence Insurance Name Policy Number Policy Arboleda Covered Member ID Arboleda Member ID Guarantor Name 11/20/2024 1 [employer] (MEDICARE REPLACEMENT /ADVANTAGE - PPO) [id number] Lupillo Arechiga [id number] Lupillo Arechiga 11/20/2024 2 [place] Lupillo Arechiga [id number] Lupillo Arechiga Notes Date Note Type Note Provider Name and Address Organization Details Recorded Time 11/20/2024 text/html ROS as noted in the HPI 69 year old male presents for an evaluation of tinnitus. He reports bilateral tinnitus that began 6-8 months ago. He states the ringing is constant and stable. Reports bilateral hearing loss, but denies any ear pain, ear drainage, and vertigo. Denies prior history of otologic surgeries or recurrent ear infections. LAURA THOMAS PA-C [address] [place] [address], [phone], [facility] - [facility] 11/20/2024 11:54:59
--- OUTSIDE RECORDS SUMMARY | 2025-01-22 15:55 | XMS_ITS | Data Portability ---
Author Organization [place] [facility], Allergy Address [address] [address] Care Team Providers Care Law Tutor Name Role Phone MILLIE JIMENEZ Primary Care Provider [phone] Assessment Encounter Date Assessment Date Assessment LastModified [...] tinnitus, vertigo, or changes in his hearing. Not available 11/20/2024 11:53:00 Plan of Treatment [...] Sensorineur al hearing loss of bilateral ears 555942825 Active 2024 GA MCCLELLAN , AUD 100 [facility],[place] [address], [place], [address], [facility] [place] 10:15:03 Bilateral tinnitus 0028425524267 Active 2024 LAURA THOMAS PA-C [address] [place] [address],[place] [address], [place], [address], [facility] - [facility] [place] 11:53:03 Impacted cerumen of bilateral ears 3709074562303 108 Active 2024 LAURA THOMAS PA-C [address] [place] [address], [address], [facility] - [facility] [place] 11:53:07 Problem Notes None recorded. Procedures Surgical History Date Name Laterality Status Provider Name and Address Organization Details Recorded Time Comp Audio with Tymps - 29998 & 57410 completed GA MCCLELLAN, CATRACHO [address] [facility],[address], [address], [facility] 11/20/2024 10:14:52 Cerumen removal without microscope bilat completed LAURA THOMAS PA-C [address] [place] [address], [address], [facility] 11/20/2024 11:51:38 Imaging Results None recorded. Procedure Notes None recorded. Medical Equipment None Reported. Vitals None Recorded Social History None recorded. Functional Status None recorded. Mental Status None recorded. Family History Nothing Reported. Medical History No medical history recorded. Past Encounters Encounter ID Performer Location Encounter Start Date Encounter Closed Date Diagnosis/Indication Diagnosis SNOMED-CT Code Diagnosis ICD10 Code Diagnosis IMO Codes Diagnosis Note [id number] LAURA THOMAS PA-C [facility] [address] [place] [address] 11/20/2024 09:48:24 11/20/2024 11:24:23 Sensorineural hearing loss of bilateral ears 228069845 H90.3 [id number] Audiologic al evaluation results: Right ear: Mild sloping to severe sensorineu ral hearing loss with good word recognitio n. Left ear: Mild sloping to moderately severe sensorineu ral hearing loss with good word recognitio n. Tympanomet ry: Right Ear:Type A Left Ear:Type A Bilateral tinnitus 58640 99002 102 H93.13 126224 Impacted c erumen of bilateral ears 9191151709 900596 H61.23 620599 Health Concerns Section Related Observation LastModified by Organization Detai ls LastModified Time None Recorded Concern Status LastModified by Organization Details LastModified Time None Recorded Advance Directives Directive None Recorded Payers Insurance Date Sequence Insurance Name Policy Number Policy Arboleda Covered Member ID Arboleda Member ID Guarantor Name 12/03/2024 1 [employer] (MEDICARE REPLACEMENT/ ADVANTAGE - PPO) [id number] Lupillo Arechiga [id number] Lupillo Arechiga 12/03/2024 2 [place] Lupillo Arechiga [id number] Lupillo Arechiga 12/03/2024 2 [place]: [facility] Lupillo Arechiga [id number] Lupillo Arechiga Notes Date Note Type Note [...] or recurrent ear infections. LAURA THOMAS PA-C [address] [place] [address], [place], [address], [facility] - [facility] 11/20/2024 11:54:59
[2025-01-22 16:11] LABS: MANUAL DIFF FLAG NO
[2025-01-22 16:13] LABS: Hematocrit 35.9 % (42.0-52.0); Hemoglobin 12.4 g/dl (14.0-18.0); Imm Gran Abs Auto 0.05 X10*3/uL (0.00-0.03); Imm Gran Pct Auto 0.7 % (0.0-0.4); Lymphocytes Absolute Auto 0.7 X10*3/uL (1.2-4.9); Mean Corpuscular HGB Conc 34.5 g/dl (31.0-36.0); Mean Corpuscular Hemoglobin 30.0 pg (27.0-33.0); Mean Corpuscular Volume 86.7 fL (80.0-98.0); NRBC Abs Auto 0.000 X10*3/uL (0.0-0.012); NRBC Pct Auto 0.0 /100WBC (0.0-0.2); Platelet Count 189 X10*3/uL (160-400); Red Blood Count 4.14 X10*6/uL (4.60-5.80); White Blood Count 7.4 X10*3/uL (4.8-10.8)
[2025-01-22 16:26] LABS: Alanine Aminotransferase 7 U/L (0-40); Albumin Level 3.8 g/dL (3.5-5.0); Alkaline Phosphatase 76 U/L (39-117); Anion Gap 11 (12-20); Aspartate Amino Transferase 21 U/L (5-37); Blood Urea Nitrogen 14 mg/dL (9-16); Calcium 9.0 mg/dL (8.4-10.2); Carbon Dioxide 25 mmol/L (22-29); Chloride 100 mmol/L (96-108); Creatinine Clr Calc Pharmacy 123.6; Estimated Glomerular Filt Rate > 60; Magnesium 2.2 mg/dL (1.6-2.6); Potassium 4.5 mmol/L (3.3-5.1); Sodium 131 mmol/L (135-145); Total Protein 6.0 g/dL (6.5-8.0)
[2025-01-22 16:33] LABS: Troponin-I High Sensitivity 3.6 ng/L (<3.5-35.0)
[2025-01-22] MEDS: Diphth,Pertus(ACell),Tet Adult 0.5 ML SYRINGE IM (18:44)
--- NOTE | 2025-01-22 19:00 | PC.NURSE ---
bacitracin applied to posterior head after wound was cleaned, bandage applied
[2025-01-22 19:21] VITALS: BP 146/86; PULSE 75; RESP 17; TEMP 36.6; O2SAT 100
[2025-01-22 19:31] LABS: Troponin-I High Sensitivity 5.1 ng/L (<3.5-35.0)
[2025-01-22 21:18] VITALS: BP 131/78; PULSE 65; RESP 16; TEMP 37; O2SAT 100
[2025-01-23 02:45] VITALS: BP 119/74; PULSE 60; RESP 14; TEMP 36.7; O2SAT 98
[2025-01-23 06:22] VITALS: BP 113/49; PULSE 73; RESP 16; O2SAT 94
--- NOTE | 2025-01-23 09:40 | PC.NURSE ---
med rec completed with patient
--- NOTE | 2025-01-23 11:24 | PHA.MEDREC ---
Addendum entered by [place] Valdes, PharmD 01/23/25 12:27: MED REC CHECKED BY [facility] Original Note: Pharmacy Consult ? Medication Reconciliation Pharmacy reviewed med rec done by nursing. Spoke with pt and he states he comes from [facility] but verified the meds nurse had confirmed were correct. Got list from [facility] and utilized that to verify med rec.
--- NOTE | 2025-01-23 13:31 | MHC.CM.ED ---
Met with pt to discuss d/c planning needs: pt resides at [facility] and uses no DME or services. He states his sister assists w/transportation if needed. PT italoal recommends home w/walker and PT. Pt hesitant on [facility] services but states he agrees to [facility]. Referral made. Call placed to KHANG Joe (?) at [facility] to review return criteria - she is in agreement w/d/c plan. Tai[facility] to transport, HCP completed and scanned into chart.
[2025-01-23 15:49] VITALS: BP 134/66; PULSE 77; RESP 18; TEMP 36.8; O2SAT 98
== END 2025-01-23 15:51 | disposition home or self-care (01) ==
PROVIDERS: Physician Assistant Medical; Emergency Provider Emergency Medicine
DX: S00.93XA Contusion of unspecified part of head, initial encounter (principal); S00.91XA Abrasion of unspecified part of head, initial encounter; Z23 Encounter for immunization; F03.90 Unspecified dementia, unspecified severity, without behavioral disturbance, psychotic disturbance, mood disturbance, and anxiety; W01.0XXA Fall on same level from slipping, tripping and stumbling without subsequent striking against object, initial encounter; Y93.01 Activity, walking, marching and hiking; Y92.410 Unspecified street and highway as the place of occurrence of the external cause; Y99.9 Unspecified external cause status
CPT/HCPCS: 36415; 70450; 72125; 80053; 83735; 84484; 85025; 90471; 90715; 93005; 96360; 96361; 97161; 99285

== ENCOUNTER → 2025-01-22 15:41 | Outpatient (BNV) | payer MEDICARE, MEDICAID, SELFPAY | PROVIDERS: Emergency Provider Emergency Medicine; Visit Provider Internal Medicine Cardiovascular Disease | DX: I44.0 Atrioventricular block, first degree (principal); I45.10 Unspecified right bundle-branch block | CPT/HCPCS: 93010 ==

== ENCOUNTER → 2025-01-22 15:41 | Outpatient (BNV) | payer MEDICARE, MEDICAID, SELFPAY | PROVIDERS: Emergency Provider Emergency Medicine; Visit Provider Radiology Diagnostic Radiology | DX: M50.322 Other cervical disc degeneration at C5-C6 level (principal); M50.323 Other cervical disc degeneration at C6-C7 level; M85.88 Other specified disorders of bone density and structure, other site; S09.90XA Unspecified injury of head, initial encounter; I67.82 Cerebral ischemia; Z04.3 Encounter for examination and observation following other accident | CPT/HCPCS: 70450; 72125 ==